=== PATIENT | male | born 1945 | race Caucasian/White ===

== ENCOUNTER 2016-11-03 14:02 | Inpatient (IN) ==
--- NOTE | 2016-11-03 17:13 | Vascular/Endovascular H&P ---
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 He has progressive pain and ulceration in the left foot. He will be started on a heparin drip. He will require revascularization during this admission. The risks, benefits and alternatives were discussed and all questions were answered. (2) Essential hypertension Current Visit: Yes Status: Chronic He was counseled regarding atherosclerotic risk factor reduction. (3) Atrial fibrillation Current Visit: Yes Status: Chronic Eliquis will be held in preparation for surgery. Patient will be started on a heparin drip. Qualifiers: Atrial fibrillation type: chronic Qualified Code(s): I48.2 - Chronic atrial fibrillation History of Present Illness Chief complaint: Peripheral vascular diease with ulceration HPI: Mr. Jimenez is a 70 year old male with a history of hypertension, atrial fibrillation and peripheral vascular disease with ulceration. He was found to have diminished pulse exam and vascular labs were consistent with severe disease. The patient underwent a CT angiogram and was found to have a left iliac, femoral and popliteal artery occlusion. He reports progressively worsening symptoms of rest pain. At the time of evaluation he is alert. He denies any chest pain or shortness of breath. He reports chronic left foot pain. Past Med Surg Social Fam HX - Past Medical History Medical history: atrial fibrillation, CVA, hypertension, other Psychiatric history: depression - Past Surgical History Surgical History: other (lung surgery 2009) - Social History Smoking Status: Former smoker Smokeless Tobacco Status: No Alcohol use: none, rarely Drug use: none Medications and Allergies Aspirin [Adult Low Dose Aspirin EC] 81 mg PO DAILY 03/31/15 [History] Losartan/HCTZ [Hyzaar 50-12.5 Tablet] 1 tab PO DAILY 03/31/15 [History] Metoprolol [Lopressor] 100 mg PO BID 03/31/15 [History] Tamsulosin [Flomax] 0.4 mg PO BID 03/31/15 [History] Amino Acids/Protein Hydrolys [Pre Protein 20 Liquid] 30 ml PO DAILY 11/03/16 [ History] Apixaban [Eliquis] 5 mg PO BID 11/03/16 [History] Azathioprine [Imuran] 1 tab PO DAILY 11/03/16 [History] Calcium Carbonate/Vitamin D3 [Calcium 500 + Vit D Caplet] 1 each PO TIDWM [History] Venlafaxine XR (24 HR) [Effexor Xr] 75 mg PO DAILY 11/03/16 [History] Omeprazole [PriLOSEC] 20 mg PO DAILY 11/04/16 [History] predniSONE [PredniSONE] 20 mg PO DAILY 11/04/16 [History] 3 Allergy/AdvReac Type Severity Reaction Status Date / Time No Known Allergies Allergy Verified 10/07/14 18:39 All Systems Review: A 10-system review of systems was performed and is negative for pertinent findings except as documented above in the HPI. - Constitutional Constitutional: no chills, no fever(s) - Cardiovascular Cardiovascular: no chest pain at rest, no chest pain with exertion, no dyspnea at rest, no dyspnea on exertion - Vascular Vascular: lower extremity ulcers Exam Vital Signs, Last 4 Hours Temp Pulse Resp BP Pulse Ox 11/03/16 14:37 97.3 F L 81 16 116/79 94 General: Present: Conversant, No Apparent Distress HEENT: Present: Atraumatic, Normocephaly, Trachea midline, Pupils equal Neck: Absent: Left Carotid bruit, Right Carotid bruit Cardiac: Present: No Murmur, Irregular Rhythm Lungs: Present: Normal Breath Sounds, No Wheeze, Rales, Rhonchi Neuro: Present: Alert and responsive, Other (left upper and lower extremity weakness) Abdomen: Present: Soft, Non-tender. Absent: Masses Vascular: Present: Normal capillary refill, Pulse, absent (left femoral, popliteal and tibial pulses), Cyanosis (left forefoot). Absent: Edema Skin: Present: Wound/ulcer(s) (superficial ulcers on toese) Results 11/04/16 01:24 11/04/16 01:24
[2016-11-03] MEDS ORDERED: Naloxone 0.4 MG/ML INJ IVP PRN (17:14)
[2016-11-03] MEDS ORDERED: *HR* Labetalol 20 MG/4 ML SYRINGE IVP PRN (17:14)
[2016-11-03] MEDS ORDERED: Acetaminophen 325 MG TABLET PO PRN (17:14)
[2016-11-03] MEDS ORDERED: *HR* OxyCODONE Immed Rel 5 MG TABLET PO PRN (17:14)
[2016-11-03] MEDS ORDERED: *HR* HYDROcodone/Acet 5/325 mg TABLET PO PRN (17:14)
[2016-11-03] MEDS ORDERED: *HR* Heparin 5,000 UNIT/ML VIAL IVP ONE (18:13)
[2016-11-03] MEDS ORDERED: *HR* Heparin 5,000 UNIT/ML VIAL IVP PRN ×2 (18:13)
[2016-11-03 18:24] LABS: Hematocrit 40.7 % (37.5-50.1); Hemoglobin 14.1 g/dL (12.9-16.9); Mean Corpuscular HGB Conc 34.6 g/dL (31.6-35.5); Mean Corpuscular Hemoglobin 30.3 pg (28.0-33.3); Mean Corpuscular Volume 87.5 fL (83.0-100.0); Mean Platelet Volume 9.2 fL (9.4-12.4); Nucleated Red Blood Cells 0.2 /100 WBC (0); Platelet Count 333 K/mcL (140-400); Red Blood Count 4.65 M/mcL (4.19-5.50); Red Cell Distribution Width 19.7 % (11.5-14.5)
[2016-11-03 18:28] LABS: INR 1.4; Prothrombin Time 14.9 Seconds (9.4-12.1)
[2016-11-03 18:30] LABS: Activated Partial Thrombo Time 32.4 Seconds (26.0-36.0)
[2016-11-03 18:32] LABS: BUN/Creatinine Ratio 22 (6-26); Blood Urea Nitrogen 28 mg/dL (8-26); Calcium 9.7 mg/dL (8.6-10.8); Carbon Dioxide 26 mEq/L (19-29); Chloride 99 mEq/L (98-109); Glucose 134 mg/dL (70-99); Osmolality,Calculated 285 (280-300); Potassium 4.3 mEq/L (3.5-4.5); Sodium 134 mEq/L (136-145); eGFR For African Americans > 60 (> 60); eGFR For Non-African Americans 55 (> 60)
[2016-11-03] MEDS: 0.9 % Sodium Chloride 1,000 ML IVC SCH (19:20)
[2016-11-03] MEDS: Heparin 25,000 UNIT/500 ML D5W 25,000 UNIT/500 ML MLS IVC SCH (19:21)
[2016-11-03 19:27] LABS: Eosinophils # 1.2 K/mcL (0.0-0.6); Lymphocytes # 3.8 K/mcL (0.6-4.6); Monocytes # 0.5 K/mcL (0.0-1.3); Neutrophils # 6.5 K/mcL (1.6-8.9); Platelet Estimate Normal (Normal)
[2016-11-03] MEDS: Metoprolol 100 MG TABLET PO SCH (20:44)
[2016-11-04 01:41] LABS: Basophils # 0.1 K/mcL (0.0-0.2); Basophils % 0.4 %; Eosinophils # 0.9 K/mcL (0.0-0.6); Eosinophils % 7.5 %; Hematocrit 37.8 % (37.5-50.1); Hemoglobin 13.4 g/dL (12.9-16.9); Immature Granulocytes % 9.3 % (0-4); Lymphocytes # 1.6 K/mcL (0.6-4.6); Lymphocytes % 13.5 %; Mean Corpuscular HGB Conc 35.4 g/dL (31.6-35.5); Mean Corpuscular Hemoglobin 30.9 pg (28.0-33.3); Mean Corpuscular Volume 87.3 fL (83.0-100.0); Monocytes # 0.6 K/mcL (0.0-1.3); Monocytes % 4.9 %; Nucleated Red Blood Cells 0.2 /100 WBC (0); Platelet Count 291 K/mcL (140-400); Red Blood Count 4.33 M/mcL (4.19-5.50); Red Cell Distribution Width 19.1 % (11.5-14.5); Segmented Neutrophils % 64.4 %
[2016-11-04 01:44] LABS: Neutrophils # 7.5 K/mcL (1.6-8.9)
[2016-11-04 01:54] LABS: BUN/Creatinine Ratio 26 (6-26); Blood Urea Nitrogen 25 mg/dL (8-26); Calcium 9.3 mg/dL (8.6-10.8); Carbon Dioxide 25 mEq/L (19-29); Chloride 100 mEq/L (98-109); Glucose 92 mg/dL (70-99); Magnesium 1.7 mg/dL (1.6-2.6); Osmolality,Calculated 280 (280-300); Potassium 4.1 mEq/L (3.5-4.5); Sodium 133 mEq/L (136-145); eGFR For African Americans > 60 (> 60); eGFR For Non-African Americans > 60 (> 60)
[2016-11-04 02:04] LABS: Activated Partial Thrombo Time 185.4 Seconds (26.0-36.0)
[2016-11-04 02:20] LABS: Heparin anti-factor XA UFH 1.78 IU/mL (0.30-0.70)
[2016-11-04] MEDS: VITAMIN D3 PO SCH ×3 (07:56→17:52)
[2016-11-04] MEDS: CALCIUM CARBONATE PO SCH ×3 (07:56→17:52)
[2016-11-04] MEDS: Metoprolol 100 MG TABLET PO SCH ×2 (08:43→20:11)
[2016-11-04] MEDS: Losartan/HCTZ 50-12.5 TABLET PO SCH (08:43)
[2016-11-04] MEDS: Aspirin Enteric Coated 81 MG Tablet PO SCH (08:43)
[2016-11-04] MEDS: Venlafaxine XR (24 HR) 37.5 MG CAP.ER.24H PO SCH (08:43)
[2016-11-04] MEDS: 0.9 % Sodium Chloride 1,000 ML IVC SCH (15:02)
[2016-11-04] MEDS: Heparin 25,000 UNIT/500 ML D5W 25,000 UNIT/500 ML MLS IVC SCH (20:07)
--- NOTE | 2016-11-04 21:18 | Anesthesia Evaluation PreOp ---
Date of Encounter: 11/04/16 Time of Encounter: 21:15 - Past History Planned Operation: L-Iliac Stent/Possible possible Fem-Fem vs. Fem-Pop Cardiac History: HTN (maintained on Losartan/Hctz, Metoprolol), Arrhythmia (Hx of Paroxysmal AFib maintained on Eliquis.), Other (PVDz w/ L-iliac, femoral & Popliteal artery occlusion & L foot ulceration this hospitalization) Pulmonary History: Former smoker (quit 2011) RN DIALYSIS History: CVA (Strokes x 2 [2006, 2011] dysarthria, L-sided weakness UE>LE. Pt uses Wheelchair for ambulation), Other (Anxiety/Depression/Hx of hospitalization of Major Depression Disorder maintained on Effexor) Other Medical History: GERD (maintained on Prilosec), Other (RA ?? maintained on Imuran, Prednisone [20mg po Daily]. BPH maintained on Flomax) Anesthesia History: No Prior Anesthetic Complications, Past Anesthesia (Lung procedure 2009, T&A approx 195) Alcohol Use: none, rarely Drug use: none Medications and Allergies Aspirin [Adult Low Dose Aspirin EC] 81 mg PO DAILY 03/31/15 [History] Losartan/HCTZ [Hyzaar 50-12.5 Tablet] 1 tab PO DAILY 03/31/15 [History] Metoprolol [Lopressor] 100 mg PO BID 03/31/15 [History] Tamsulosin [Flomax] 0.4 mg PO BID 03/31/15 [History] Amino Acids/Protein Hydrolys [Pre Protein 20 Liquid] 30 ml PO DAILY 11/03/16 [ History] Apixaban [Eliquis] 5 mg PO BID 11/03/16 [History] Azathioprine [Imuran] 1 tab PO DAILY 11/03/16 [History] Calcium Carbonate/Vitamin D3 [Calcium 500 + Vit D Caplet] 1 each PO TIDWM [History] Venlafaxine XR (24 HR) [Effexor Xr] 75 mg PO DAILY 11/03/16 [History] Omeprazole [PriLOSEC] 20 mg PO DAILY 11/04/16 [History] predniSONE [PredniSONE] 20 mg PO DAILY 11/04/16 [History] 3 Allergy/AdvReac Type Severity Reaction Status Date / Time No Known Allergies Allergy Verified 10/07/14 18:39 - Meds/Allergy Pre-op Review Medications Reviewed: Yes Allergies Reviewed: Yes Beta Blockers on Current Med List: No Anesthesia Results - Labs 11/04/16 01:24 11/04/16 01:24 Laboratory Tests 11/03/16 11/04/16 11/04/16 18:00 01:24 01:24 PT 14.9 H INR 1.4 APTT Heparin Anti-Xa, Unfract 1.78 H* Est GFR (Non-Af Amer) > 60 11/04/16 15:37 PT INR APTT 69.6 H Heparin Anti-Xa, Unfract Est GFR (Non-Af Amer) Laboratory Results - Imaging EKG: pending, image reviewed (158bpm [place], 03/2015. Current EKG ordered/pending) Anesthesia Exam Vital Signs Temp Pulse Resp BP Pulse Ox 11/04/16 19:31 97.5 F L 83 19 102/66 90 11/04/16 16:00 97.6 F 73 16 108/61 97 11/04/16 11:52 97.4 F L 64 16 97/70 98 11/04/16 07:33 98.0 F 81 16 128/81 94 11/04/16 04:41 97.5 F L 73 16 120/79 94 11/04/16 04:40 74 11/03/16 23:40 69 11/03/16 23:39 98.0 F 73 15 119/74 95 Intake and Output 11/04/16 11/04/16 11/04/16 07:59 15:59 23:59 Intake Total 244 / 244 1120 / 1120 256 / 256 Balance 244 / 244 1120 / 1120 256 / 256 Intake: IV Fluids 244 / 244 1000 / 1000 256 / 256 0.9 % Sodium Chloride 1,000 ML 1000 / 1000 @ 50 mls/hr IVC .Q20H [facility] Rx#: [id number] Heparin 25,000 UNIT/500 ML D5W 244 / 244 256 / 256 25,000 unit In 500 ml @ 14 UNIT /KG/HR 21.56 mls/hr IVC . [id number] [facility] Rx#:[id number] Oral 120 / 120 Other: Meal Lunch Percent of Meal Consumed 100% # Urine Diapers 1 Weight 77.4 kg Patient Weight 11/04/16 23:59 Weight 77.4 kg Height: 5'10" Weight: 170# BMI = 24.5 NPO (# of Hours): MNoc - HEENT Pupil (Motor): Pupils equal, EOMI Mallampati: II Teeth: Edentulous Oral Opening: Greater than 3 - RN DIALYSIS LOC: Oriented RN DIALYSIS Motor: Normal RUE, Normal RLE, Normal Face, Deficit LUE, Deficit LLE RN DIALYSIS Sensory: Normal: RUE, RLE, Face, Deficit: LUE, LLE - Cardiac Rhythm: Regular Murmur: None - Pulmonary Breath Sounds: bilateral Clear Respiratory Effort: Symmetrical Anesthesia Assess/Plan ASA Score: 3 (HTN, AFib, RA, Anxiety/Depression) Modified Tigrett Scale for Level of Consciousness: Cooperative, oriented, and tranquil Anesthetic Plan: General Monitoring Plan: Standard Monitors, A-Line Recovery Plan: PACU Anes Supervising Prov Stmt: Pt seen/evaluated, R&B Discussed, questions answered and consent obtained. Kanika Frye MD
--- NOTE | 2016-11-05 06:35 | Vascular/Endovas Progress Note ---
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 He has pain and ulceration. He has been scheduled for stent placement and/or possible bypass. The risks, benefits and alternatives were discussed and all questions were answered. He expressed understanding and wishes to proceed. He will continue with his heparin drip. (2) Essential hypertension Current Visit: Yes Status: Chronic He was again counseled regarding atherosclerotic risk factor reduction. (3) Atrial fibrillation Current Visit: Yes Status: Chronic Eliquis will be held in preparation for surgery. Patient will be started on a heparin drip. Qualifiers: Atrial fibrillation type: chronic Qualified Code(s): I48.2 - Chronic atrial fibrillation - Subjective Interval history: The patient is comfortable at this time, except for mild left foot pain. He denies any acute changes overnight. He denies any chest pain or shortness of breath. Vital Signs, Last 4 Hours Temp Pulse Resp BP Pulse Ox 11/05/16 04:00 80 11/05/16 03:53 98.5 F 76 19 120/75 93 - Physical Examination General: Present: Conversant, No Apparent Distress HEENT: Present: Pupils equal Cardiac: Present: Irregular Rhythm Lungs: Present: Normal Breath Sounds, No Wheeze, Rales, Rhonchi Neuro: Present: Alert and responsive Vascular: Present: Normal capillary refill, Pulse, absent (left lower extremity) . Absent: Cyanosis, Edema Abdomen: Present: Soft, Non-tender, Masses Skin: Present: Wound/ulcer(s) (superficial foot ulcers, no erythema, minimal serous drainage) - VTE Reasons for not Prescribing Prophylaxis: Not indicated-Anticoagulated or INR therapeutic Documentation of Mechanical Device: Intermittent pneumatic compression device Results 11/04/16 01:24 11/04/16 01:24 Lab Results, Last 24 hours 11/04/16 11/04/16 11/05/16 09:18 15:37 04:24 APTT 81.7 H D 69.6 H 75.4 H Consult Discharge Plan - Plan Referrals: Jonah Almanza MD [Partnered Physician] - 11/06/17 1:00 pm Nina Smith, AMAYA [Primary Care Provider] - (THIS PATIENT IS FROM [facility], NO PCP APPOINTMENT NEEDED)
[2016-11-05] MEDS: VITAMIN D3 PO SCH ×2 (08:22→12:27)
[2016-11-05] MEDS: CALCIUM CARBONATE PO SCH ×2 (08:22→12:27)
[2016-11-05] MEDS: Metoprolol 100 MG TABLET PO SCH ×2 (08:29→20:32)
[2016-11-05] MEDS: Aspirin Enteric Coated 81 MG Tablet PO SCH (09:48)
[2016-11-05] MEDS: Venlafaxine XR (24 HR) 37.5 MG CAP.ER.24H PO SCH (09:48)
[2016-11-05] MEDS: Losartan/HCTZ 50-12.5 TABLET PO SCH (09:49)
[2016-11-05] MEDS ORDERED: Heparin 1,000 UNITS/500 mL NS 500 ML ONE (11:18)
[2016-11-05] MEDS ORDERED: Lidocaine -MPF 2% 2 ML VIAL ONE (11:20)
[2016-11-05] MEDS ORDERED: *HR* FentaNYL (PF) 100 MCG/2 ML VIAL ONE ×2 (11:29→13:32)
[2016-11-05] MEDS ORDERED: *HR* Propofol 200 MG/20 ML VIAL IVP ONE (11:30)
[2016-11-05] MEDS ORDERED: Dexamethasone 4 MG/ML VIAL ONE (11:34)
[2016-11-05] MEDS ORDERED: Ondansetron 4 MG/2 ML VIAL ONE (11:34)
[2016-11-05] MEDS ORDERED: Vancomycin 1,000 MG VIAL ONE (12:17)
[2016-11-05] MEDS ORDERED: ceFAZolin 2,000 MG in D5% in Water (Mini-Bag+) 100 ML IVPB ONE (12:40)
[2016-11-05] MEDS ORDERED: Vancomycin 1,000 MG in D5% in Water 250 ML IVPB ONE (13:10)
[2016-11-05] MEDS ORDERED: *HR* HYDROmorphone (PF) 1 MG/ML SYRINGE IVP PRN (14:44)
[2016-11-05] MEDS ORDERED: Ondansetron 4 MG/2 ML VIAL IVP ONE (14:44)
--- NOTE | 2016-11-05 15:16 | Anesthesia Evaluation Post Op ---
Date of Encounter: 11/05/16 Time of Encounter: 15:15 - Vital Signs Vital Signs: Vital Signs/O2 Sat, Most Current Temp Pulse Resp BP Pulse Ox 97.7 F 74 13 116/64 99 11/05/16 14:37 11/05/16 14:57 11/05/16 14:57 11/05/16 14:57 11/05/16 14:57 - Lungs Lungs: Clear Ascult./Percussion - Airway Airway: Non-obstructed - Cardiovascular Regular Rate - Mental Status Mental Status: Asleep with brisk response to light stimulation - Pain Pain Scale: 0 Pain Scale used: Numeric (1 - 10) - Nausea Vomiting Nausea Vomiting: Not Present - Hydration Hydration: NPO, Blas catheter - Discharge PostOp Status: Transfer Patient to floor
--- NOTE | 2016-11-05 15:28 | Operative Note ---
Date of procedure: 11/05/16 Pre-op diagnosis: Peripheral Vascular Disease with ulceration Post-op diagnosis: same Procedure: 1. Iliofemoral endarterectomy with bovine pericardial patch angioplasty. 2. Left deep femoral endarterectomy. 3. Left iliac artery thrombectomy with 4 belizean and 5 belizean salvador embolectomy catheters. Complications: None Anesthesia: SIDDHARTH Surgeon: Jonah Almanza Estimated blood loss (cc): 50 Specimen: Left lower extremity thrombus and plaque Condition: stable Disposition: PACU Procedure in Detail: Indications: The patient is a 70 year old male with multiple medical comorbidities including hypertension, cerebrovascular accidents and atrial fibrillation. The patient also has a history of peripheral vascular disease with rest pain and ulcerations. Revascularization was recommended for symptomatic relief and to reduce his risk of limb loss. Procedure: The patient was identified in the preoperative area. The risks, benefits, and alternatives of procedure were discussed and all questions were answered. He was taken to the operating room and placed in supine position on the operating room table. After the induction of general endotracheal anesthesia, he was cleaned and draped in normal sterile fashion. An oblique incision was made along the left groin sharply. Hemostasis was obtained with electrocautery. Through a process of blunt and sharp electrocautery dissection , the skin and subcutaneous tissues were incised and the mid to distal external iliac artery was dissected underneath the inguinal ligament and a vessel loop was passed around it. The common femoral artery, deep femoral artery and superficial femoral artery were dissected circumferentially and surrounded with vessel loops. The vessels were noted to be firm and heaviliy calcified. The left common femoral artery was pulseless. The patient received 5000 units of heparin intravenously. The vessels were occluded. A longitudinal arteriotomy was made sharply into the common femoral artery. It was extended under the inguinal ligament into the external iliac artery proximally. It was then extended into the superficial femoral artery distally. Significant thrombus and plaque were noted to be present in the left common femoral and left external iliac artery. a 5 belizean salvador catheter was passed proximally and significant thrombus was removed. After the first pass, no significant antegrade flow occurred. However , after several additional passes, vigorous upulsatile flow was noted. A 4 belizean catheter was also passed and no additional thrombus was noted. The left superficial femroal artery was noted to be chronically occluded at it's origin. The left deep femoral artery had minimal retrograde flow upon release of the vessel loop and was noted to have significant nealry occlusive plaque. Using a dental freer, an endarterectomy was performed from the external iliac artery through the common femoral artery. The plaque was irregular and heavily calficied. The plaque was excised sharply and no elevated flaps were noted at the endpoint. The dental freer was then used to perform a deep femoral endarterectomy. The plaque was circumferentially excised from the deep femoral artery using an eversion technique. Release of the loop revealed significant retrograde flow. The loop was tightened. The lumen was irrigated with heparinzed saline. A bovine pericardial patch was cut to fit the defects in the external iliac, common femoral and superficial femoral arteries. The patch was sutured in place with running 6-0 Prolene. Prior to completing the patch anastomosis, each vessel was flushed individually, then reoccluded. Heparinized saline was infused into the lumen. The patch was completed and flow was restored. Thrombin and Gelfoam were used to aid in hemostasis. A biphasic signal was noted at the posterior tibial artery. The wound was irrigated with antibiotic- containing saline. Platelet-rich and platelet-poor plasma were infused into the wound. The wounds were reapproximated with layer of 2-0 Vicryl followed by two layers of 3-0 and Vicryl 3-0 Monocryl in the subcuticular layer. A sterile dressing was applied. The patient was extubated and taken to recovery room in stable condition.
[2016-11-05] MEDS ORDERED: *HR* Labetalol 20 MG/4 ML SYRINGE IVP PRN (15:49)
[2016-11-05] MEDS ORDERED: 0.9 % Sodium Chloride 1,000 ML IVC SCH (15:49)
[2016-11-05] MEDS ORDERED: *HR* Morphine 2 MG/ML SYRINGE IVP PRN (15:49)
[2016-11-05] MEDS ORDERED: Acetaminophen 325 MG TABLET PO PRN (15:49)
[2016-11-05] MEDS ORDERED: Naloxone 0.4 MG/ML INJ IVP PRN (15:49)
[2016-11-05] MEDS ORDERED: Ondansetron 4 MG/2 ML VIAL IVP PRN (15:49)
[2016-11-05] MEDS ORDERED: *HR* HYDROcodone/Acet 5/325 mg TABLET PO PRN (15:49)
[2016-11-05] MEDS: *HR* OxyCODONE Immed Rel 5 MG TABLET PO PRN (17:39)
[2016-11-05] MEDS: ceFAZolin 2,000 MG in D5% in Water 100 ML IVPB SCH (18:21)
--- NOTE | 2016-11-05 18:58 | Electrocardiograph Report ---
[address] [place] [address] Test Date: 2016-11-04 Pat Name: Jonah Jimenez Department: 110 Room: 2N07 Gender: M [employer] Psych[employer]: : 1945 Requested By: Cande Banks Order Number: [id number] Reading MD: Jose Wayne MD Measurements Intervals Ellery Rate: 67 P: 66 [place]: 191 QRS: 199 QRSD: 95 T: 107 QT: 383 QTc: 399 Interpretive Statements SINUS RHYTHM WITH OCCASIONAL SUPRAVENTRICULAR PREMATURE COMPLEXES LATERAL MYOCARDIAL INFARCTION, OF INDETERMINATE AGE Electronically Signed On 11-05-2016 18:57:47 EDT by Jose Wayne MD
[2016-11-06] MEDS: ceFAZolin 2,000 MG in D5% in Water 100 ML IVPB SCH (03:05)
[2016-11-06] MEDS: *HR* OxyCODONE Immed Rel 5 MG TABLET PO PRN (03:58)
[2016-11-06 05:08] LABS: Basophils % 0.4 %; Eosinophils # 0.4 K/mcL (0.0-0.6); Eosinophils % 4.8 %; Hematocrit 33.2 % (37.5-50.1); Immature Granulocytes % 11.4 % (0-4); Lymphocytes # 1.2 K/mcL (0.6-4.6); Lymphocytes % 14.7 %; Mean Corpuscular Hemoglobin 29.8 pg (28.0-33.3); Mean Corpuscular Volume 87.6 fL (83.0-100.0); Monocytes # 0.4 K/mcL (0.0-1.3); Monocytes % 4.7 %; Neutrophils # 5.2 K/mcL (1.6-8.9); Nucleated Red Blood Cells 0.2 /100 WBC (0); Platelet Count 287 K/mcL (140-400); Red Blood Count 3.79 M/mcL (4.19-5.50); Red Cell Distribution Width 18.7 % (11.5-14.5)
[2016-11-06 05:24] LABS: BUN/Creatinine Ratio 14 (6-26); Calcium 8.6 mg/dL (8.6-10.8); Carbon Dioxide 23 mEq/L (19-29); Chloride 105 mEq/L (98-109); Glucose 114 mg/dL (70-99); Osmolality,Calculated 285 (280-300); Potassium 4.1 mEq/L (3.5-4.5); Sodium 137 mEq/L (136-145); eGFR For African Americans > 60 (> 60); eGFR For Non-African Americans > 60 (> 60)
[2016-11-06 05:25] LABS: Blood Urea Nitrogen 13 mg/dL (8-26); Hemoglobin 11.3 g/dL (12.9-16.9)
[2016-11-06 06:07] LABS: Anisocytosis 1+ (Not Present); Platelet Estimate Normal (Normal)
--- NOTE | 2016-11-06 07:07 | Discharge Summary ---
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 His wounds are healing and his left pedal signals are biphasic. His left foot is warm. He will be discharged today. (2) Essential hypertension Priority: Secondary Status: Chronic Comments: He was counseled regarding atherosclerotic risk factor reduction. (3) Atrial fibrillation Priority: Secondary Status: Chronic Comments: He will resume anticoagulation. Qualifiers: Atrial fibrillation type: chronic Qualified Code(s): I48.2 - Chronic atrial fibrillation (4) Postoperative anemia due to acute blood loss Priority: Secondary Status: Acute Comments: The patient has acute expected postoperative blood loss anemia. He is hemodynamically stable without evidence of ongoing blood loss. (5) Cerebrovascular disease Priority: Secondary Status: Chronic Comments: The patient a remote history of a right hemispheirc stroke with a chronic left sided motor deficit. - Discharge Medications Prescriptions: HYDROcodone/Acet 5/325 mg [[place] 5-325 mg] 1 tab PO Q4H PRN #25 tablet PRN Reason: POSTOPERATIVE PAIN Home Medications: Aspirin [Adult Low Dose Aspirin EC] 81 mg PO DAILY 03/31/15 [History] Losartan/HCTZ [Hyzaar 50-12.5 Tablet] 1 tab PO DAILY 03/31/15 [History] Metoprolol [Lopressor] 100 mg PO BID 03/31/15 [History] Tamsulosin [Flomax] 0.4 mg PO BID 03/31/15 [History] Amino Acids/Protein Hydrolys [Pre Protein 20 Liquid] 30 ml PO DAILY 11/03/16 [ History] Apixaban [Eliquis] 5 mg PO BID 11/03/16 [History] Azathioprine [Imuran] 1 tab PO DAILY 11/03/16 [History] Calcium Carbonate/Vitamin D3 [Calcium 500 + Vit D Caplet] 1 each PO TIDWM [History] Venlafaxine XR (24 HR) [Effexor Xr] 75 mg PO DAILY 11/03/16 [History] Omeprazole [PriLOSEC] 20 mg PO DAILY 11/04/16 [History] predniSONE [PredniSONE] 20 mg PO DAILY 11/04/16 [History] HYDROcodone/Acet 5/325 mg [[place] 5-325 mg] 1 tab PO Q4H PRN #25 tablet 11/06/16 [Rx] Allergies/Adverse Reactions: 3 Allergy/AdvReac Type Severity Reaction Status Date / Time No Known Allergies Allergy Verified 10/07/14 18:39 Procedures/tests Complete & Pending: Procedures Performed prior 72 hours Category Date Time Status EKG [ECG 12 lead ECG] [ECG] Routine Y 11/04/16 21:49 Completed Date of admission: 11/03/16 14:05 Primary care physician: Nina Smith CNP Procedure(s) Performed: Left iliac thrombectomy and left femoral endarterectomy. Discharging clinician: Jonah Almanza Anticipated date of discharge: 11/06/16 - Patient Status Disposition: Transfer SNF Condition: Good Functional capacity at discharge: wheelchair bound Overall status at discharge: patient is back to baseline - Discharge Instructions Instructions: Hydrocodone/Acetaminophen (By mouth), Remote Superficial Femoral Artery Endarterectomy (DC) Follow Up With: Jonah Almanza MD [Partnered Physician] - 12/15/16 1:00 pm Nina Smith CNP [Primary Care Provider] - (THIS PATIENT IS FROM [facility], NO PCP APPOINTMENT NEEDED) Additional Instructions: May remove bandage and shower 11/07/16. Wash wound gently and pat to dry. Apply dry gauze to wounds daily for 7 days. No tub baths or swimming until 11/28/16. Call Dr. Almanza at [phone] with questions or concerns. - Diet and Activity Activity: increase activity as tolerated Diet: advance to your usual diet - Hospital Course Hospital course: Mr. Jimenez is a 70 year old male with a history of peripheral vascular disease with ulceration. He was admitted and started on a heparin drip on 11/03/16. He underwent a left iliac thrombectomy and left femoral endarterectomy on 11/05/16. He tolerated the procedure well. His wounds were healing on postoperative day #1 and his foot was warm. He was discharged in stable condition without complications. - Time Spent with Patient Total time spent providing and/or coordinating discharge services: Exam Vital Signs, Last 4 Hours Temp Pulse Resp BP Pulse Ox 11/06/16 04:42 97.9 F 75 16 135/69 94 11/06/16 04:40 87 11/06/16 04:00 97.9 F 87 94 General: Present: Conversant, No Apparent Distress HEENT: Present: Atraumatic Cardiac: Present: Irregular Rhythm Lungs: Present: Normal Breath Sounds Neuro: Present: Alert and responsive, Other (left upper and lower extremity weakness due to prior CVA) Abdomen: Present: Soft Vascular: Present: Normal capillary refill, Surgical incisions (incisions clean and dry withotu erythema, hematoma or drainage). Absent: Cyanosis Skin: Present: Wound/ulcer(s) (superficial toe ulcerations) - VTE Reasons for not Prescribing Prophylaxis: Not indicated-Anticoagulated or INR therapeutic Documentation of Mechanical Device: Intermittent pneumatic compression device
[2016-11-06] MEDS: Metoprolol 100 MG TABLET PO SCH (07:43)
[2016-11-06] MEDS ORDERED: Cholecalciferol (D-3) 1,000 UNIT TABLET PO SCH (09:00)
[2016-11-06] MEDS ORDERED: Venlafaxine XR (24 HR) 37.5 MG CAP.ER.24H PO SCH (09:00)
[2016-11-06] MEDS ORDERED: Losartan/HCTZ 50-12.5 TABLET PO SCH (09:00)
[2016-11-06] MEDS ORDERED: Aspirin Enteric Coated 81 MG Tablet PO SCH (09:00)
[2016-11-06 11:29] VITALS: BP 116/65
--- NOTE | 2016-11-06 16:31 | Physician Discharge Referral ---
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 of other part of lower left leg Priority: Primary Status: Chronic (2) Essential hypertension Priority: Secondary Status: Chronic (3) Atrial fibrillation Priority: Secondary Status: Chronic Prognosis: Good Aware of Diagnosis: Patient, Family Aware of Prognosis: Patient, Family - Transfer Medications Prescriptions: HYDROcodone/Acet 5/325 mg [[place] 5-325 mg] 1 tab PO Q4H PRN #25 tablet PRN Reason: POSTOPERATIVE PAIN Home Medications: Aspirin [Adult Low Dose Aspirin EC] 81 mg PO DAILY 03/31/15 [History] Losartan/HCTZ [Hyzaar 50-12.5 Tablet] 1 tab PO DAILY 03/31/15 [History] Metoprolol [Lopressor] 100 mg PO BID 03/31/15 [History] Tamsulosin [Flomax] 0.4 mg PO BID 03/31/15 [History] Amino Acids/Protein Hydrolys [Pre Protein 20 Liquid] 30 ml PO DAILY 11/03/16 [ History] Apixaban [Eliquis] 5 mg PO BID 11/03/16 [History] Azathioprine [Imuran] 1 tab PO DAILY 11/03/16 [History] Calcium Carbonate/Vitamin D3 [Calcium 500 + Vit D Caplet] 1 each PO TIDWM [History] Venlafaxine XR (24 HR) [Effexor Xr] 75 mg PO DAILY 11/03/16 [History] Omeprazole [PriLOSEC] 20 mg PO DAILY 11/04/16 [History] predniSONE [PredniSONE] 20 mg PO DAILY 11/04/16 [History] HYDROcodone/Acet 5/325 mg [[place] 5-325 mg] 1 tab PO Q4H PRN #25 tablet 11/06/16 [Rx] Allergies/Adverse Reactions: 3 Allergy/AdvReac Type Severity Reaction Status Date / Time No Known Allergies Allergy Verified 10/07/14 18:39 - Respiratory Orders Smoking Cessation: Smoking cessation has been advised. For more information, call the [place] Tobacco Quit Line at 0-848-GUPB-NOW. - Ancillary Orders May use pressure relief devices daily prn, May go on DEREJE w/family/respon alliance party w /meds at nurse discretion PRN, May have alcoholic beverages, May consult with Dentist, Transport Tech, Honey Processor PRN - Advance Directives Living Will: No Power of Machine Deburrer: No Code Status: Full Code - Mobility Orders Chair, Other (as tolerated) - Rehabiliation Orders Rehab Potential: Good Rehab Orders: ROM Exercises, Evaluation for Physical Therapy, Evaluation for Occupational Therapy - Treatments Skin tear care topically daily PRN per policy, May check for fecal impaction rectally daily PRN, Fleet enema rectally every other day PRN cleansing purposes - Diet Orders Regular CERTIFICATION: I certify that the transfer of the above named patient to an Extended Care Facility is necessary for the continuing treatment of the diagnosis listed. The above information is true and accurate reflection of patient's current condition. Confidential - Redisclosure prohibited without a patient's written consent.
== END 2016-11-06 18:45 | DRG 271 ==
LOC: SAMDAY 14:02 → 2NNU 14:05
PROVIDERS: ADMIT Surgery; ATTEND Surgery

== ENCOUNTER 2017-03-21 20:17 | Inpatient (IN) ==
--- NOTE | 2017-03-21 20:25 | Emergency Department Note ---
Disposition Clinical Impression: Pyelonephritis UTI (urinary tract infection) Qualifiers: Urinary tract infection type: site unspecified Hematuria presence: without hematuria Qualified Code(s): N39.0 - Urinary tract infection, site not specified Leukocytosis Qualifiers: Leukocytosis type: unspecified Qualified Code(s): D72.829 - Elevated white blood cell count, unspecified Disposition: Admitted As Inpatient Condition: Good Time of Disposition: 21:38 Abdominal Pain HPI - General Chief Complaint: ED Abdominal Pain Stated Complaint: abd/flank pain Time Seen by Provider: 03/21/17 20:23 Source: patient, EMS Mode of arrival: EMS Limitations: no limitations Nursing Notes Reviewed: Yes Vital Signs Reviewed: Yes - History of Present Illness HPI Narrative: Patient is a 71-year-old male with past medical history of kidney stones, mild dementia, A. fib, CVA. He presents today due to concern for "penile pain." He is from [facility]. Patient states that over the past 2-3 days , he has had pain in his penis that felt similar to previous pain that he had with kidney stones. He also notes a foul odor and cloudiness in his urine. Denies any hematuria, nausea, vomiting, abdominal pain, chest pain, shortness of breath. He says he has occasional left flank pain. Denies any fevers. With previous kidney stone, he denies ever having stents or needing removal of stone or hospital stay. - Related Data Home Medications Medication Instructions Recorded Confirmed Aspirin [Adult Low Dose Aspirin EC] 81 mg PO DAILY 03/31/15 03/21/17 Metoprolol [Lopressor] 100 mg PO BID 03/31/15 03/21/17 Tamsulosin [Flomax] 0.4 mg PO BID 03/31/15 03/21/17 Apixaban [Eliquis] 5 mg PO BID 11/03/16 03/21/17 Azathioprine [Imuran] 1 tab PO DAILY 11/03/16 03/21/17 Omeprazole [PriLOSEC] 20 mg PO DAILY 11/04/16 03/21/17 predniSONE [PredniSONE] 10 mg PO DAILY 11/04/16 03/21/17 PARoxetine HCl [Paroxetine HCl] 20 mg PO DAILY 03/16/17 03/21/17 Potassium Chloride [Klor-Con 10] 10 meq PO DAILY 03/16/17 03/21/17 Sennosides/Docusate Sodium [Senna 1 each PO DAILY 03/16/17 03/21/17 Plus] Acetaminophen [Tylenol] 650 mg PO Q6H PRN 03/21/17 03/21/17 Losartan/Hydrochlorothiazide 1 each PO DAILY 03/21/17 03/21/17 [Losartan-Hctz 100-12.5 mg Tab] PredniSONE [Vance] 5 mg PO DAILY 03/21/17 03/21/17 Previous Rx's Medication Instructions Recorded HYDROcodone/Acet 5/325 mg [[place] 1 tab PO Q4H PRN #25 tablet 11/06/16 5-325 mg] Allergies Allergy/AdvReac Type Severity Reaction Status Date / Time No Known Allergies Allergy Verified 02/16/17 14:01 All systems ED: reviewed and negative except as stated. Constitutional: Denies: fever Cardiovascular: Denies: chest pain Respiratory: Denies: cough, dyspnea Gastrointestinal: Denies: abdominal pain, nausea, vomiting, diarrhea, constipation, hematemesis, melena, hematochezia Genitourinary: Reports: urgency, dysuria, frequency, other (Cloudy urine). Denies: hematuria, discharge, testicular pain, testicular mass, genital lesions Integumentary: Denies: rash, abrasion Neurological: Denies: weakness, numbness, paresthesias Abdominal Pain PMH - Past Medical History Medical history: Reports: atrial fibrillation, CVA, GERD, hypertension, other Psychiatric history: Reports: depression, other - Social History Smoking status: Former smoker Alcohol use: Reports: none, rarely Drug use: Reports: none Physical Exam - General Limitations: no limitations General appearance: alert, in no apparent distress - Head Head exam: atraumatic, normocephalic, normal inspection - Eye Eye exam: Present: normal appearance, PERRL, EOMI - ENT ENT exam: normal exam, normal oropharynx, mucous membranes moist - Neck Neck exam: Present: normal inspection, full ROM, trachea midline - Chest Chest inspection: Present: normal inspection, symmetric chest wall rise - Respiratory Respiratory exam: Present: normal lung sounds bilaterally - Cardiovascular Cardiovascular exam: Present: regular rate, normal rhythm, normal heart sounds - Abdominal Exam Abdominal exam: Present: soft, Non-Tender. Absent: tenderness, distention, guarding, rebound, rigidity - Male exam: Present: normal inspection, normal testicular lie, other (Foul- smelling urine in diaper). Absent: circumcised, paraphimosis, penile swelling, lesions, induration, erythema, priapism, ulcerations, inguinal lymphadenopathy, testicular tenderness, urethral discharge, scrotal swelling - Extremities Exam Extremities exam: Present: normal inspection, full ROM. Absent: tenderness, pedal edema - Neurological Exam Neurological exam: Present: alert, oriented X3 - Psychiatric Psychiatric exam: Present: normal affect, normal mood - Skin Skin exam: Present: warm, dry, intact, normal color Course Course Narrative: Vitals within normal limits on my exam. Physical exam shows lungs clear to auscultation, heart regular rate and rhythm, abdomen soft and nontender. Negative CVA tenderness bilaterally. exam showed no erythema, edema, lesions. He did have also a urine in diaper. Concern currently for UTI versus kidney stone. We will obtain CBC, BMP, CT abdomen and pelvis, urinalysis. 21:35 urinalysis shows evidence of UTI. CT of the abdomen and pelvis shows no ureterolithiasis but does show increased. After straining that could represent pyelonephritis. He also has bladder wall thickening consistent with cystitis. He does have an elevated white blood cell count as well. Will admit to the hospitalist for further care at this time. We will start Rocephin. Vital Signs Temperature 98.0 F 03/21/17 20:20 Pulse Rate 69 03/21/17 20:20 Respiratory Rate 20 03/21/17 20:20 Blood Pressure 145/83 03/21/17 20:20 O2 Sat by Pulse Oximetry 96 03/21/17 20:20 Temperature 98.0 F 03/21/17 20:20 Pulse Rate 70 03/21/17 21:27 Respiratory Rate 20 03/21/17 21:27 Blood Pressure 158/77 03/21/17 21:27 O2 Sat by Pulse Oximetry 94 03/21/17 21:27 Oxygen Delivery Oxygen Delivery Room Air Abdominal Pain - MDM Narrative Medical decision making narrative: Vitals within normal limits on my exam. Physical exam shows lungs clear to auscultation, heart regular rate and rhythm, abdomen soft and nontender. Negative CVA tenderness bilaterally. exam showed no erythema, edema, lesions. He did have also a urine in diaper. Concern currently for UTI versus kidney stone. We will obtain CBC, BMP, CT abdomen and pelvis, urinalysis. 21:35 urinalysis shows evidence of UTI. CT of the abdomen and pelvis shows no ureterolithiasis but does show increased. After straining that could represent pyelonephritis. He also has bladder wall thickening consistent with cystitis. He does have an elevated white blood cell count as well. Will admit to the hospitalist for further care at this time. We will start Rocephin. - Medical Records Medical records reviewed: Yes I reviewed the patient's medical records. - Lab Data Lab results reviewed: Yes I reviewed the patient's lab results. Result diagrams: 03/21/17 20:33 03/21/17 20:33 Lab Results 03/21/17 03/21/17 03/21/17 Range/Units 20:33 20:33 21:07 WBC 12.4 H (4.3-11.1) K/mcL RBC 4.67 (4.19-5.50) M/mcL Hgb 13.7 (12.9-16.9) g/dL Hct 40.6 (37.5-50.1) % MCV 86.9 (83.0-100.0) fL MCH 29.3 (28.0-33.3) pg MCHC 33.7 (31.6-35.5) g/dL RDW 14.9 H (11.5-14.5) % Plt Count 265 (140-400) K/mcL MPV 8.9 L (9.4-12.4) fL Immature Gran % 1.8 (0-4) % Seg Neutrophils % 76.3 % Lymphocytes % 10.9 % Monocytes % 8.2 % Eosinophils % 2.3 % Basophils % 0.5 % Neutrophils # 9.4 H (1.6-8.9) K/mcL Lymphocytes # 1.4 (0.6-4.6) K/mcL Monocytes # 1.0 (0.0-1.3) K/mcL Eosinophils # 0.3 (0.0-0.6) K/mcL Basophils # 0.1 (0.0-0.2) K/mcL Nucleated RBCs/100 WBC 0.2 H (0) /100 WBC Sodium 136 (136-145) mEq/L Potassium 3.5 (3.5-5.1) mEq/L Chloride 100 (98-107) mEq/L Carbon Dioxide 27 (23-29) mEq/L BUN 21 (8-23) mg/dL Creatinine 1.17 (0.70-1.30) mg/dL Est GFR ( Amer) > 60 (> 60) Est GFR (Non-Af Amer) > 60 (> 60) BUN/Creatinine Ratio 18 (6-26) Glucose 107 H (70-105) mg/dL Calculated Osmolality 285 (280-300) Calcium 9.0 (8.6-10.3) mg/dL Urine Color Red A (Yellow) Urine Clarity Turbid A (Clear) Urine pH 5.5 (5.0-8.0) pH Units Ur Specific [place] 1.023 (1.010-1.025) Urine Protein 100 H (Neg-Trace) mg/dL Urine Glucose (UA) Normal (Normal) mg/dL Urine Ketones Trace H (Negative) mg/dL Urine Blood Large H (Negative) Urine Nitrite Positive A (Negative) Urine Bilirubin Moderate H (Negative) Urine Urobilinogen Normal (Normal) mg/dL Ur Leukocyte Esterase Moderate H (Negative) Urine Microscopic RBC TNTC H (0-3) per hpf Urine Microscopic WBC TNTC H (0-3) per hpf Ur Squamous Epith Cells Many H (None-Few) per lpf Urine Bacteria Test Not Performed Hyaline Casts Test Not Performed Urine Yeast Test Not Performed Ur Culture Indicated? NO. (NO) - Radiology Data Radiology results reviewed: Yes I reviewed the patient's radiology results. Abdomen/Pelvis CT 03/21/17 20:24 IMPRESSION: 1. Punctate nonobstructing left renal calculus. Otherwise no obstructing calculi identified. No hydronephrosis. 2. Nonspecific perinephric stranding bilaterally, increased from 10/30/2016. Findings are nonspecific and could represent of third-spacing of fluids, renal insufficiency or infection. 3. The bladder is decompressed and not well evaluated. However if there is nonspecific wall thickening with trabeculation, which are nonspecific and could represent sequela of bladder outlet obstruction given prostatomegaly. Correlation for cystitis is recommended. 4. Normal appendix. 5. Small fat containing right inguinal hernia. Nonspecific 2.5 cm fluid collection in the left groin, new from 10/30/2016. 6. Age-indeterminate mild to moderate compression deformities of the superior endplates of the L3 and L5 vertebral bodies with approximately 25% loss of vertebral body height, though new from 10/30/2016. 7. Stable pleural thickening of the left lung base with associated scarring and atelectasis, including probable focal rounded atelectasis. D/ / 03/21/2017 21:22:45 Damion Gray MD / sami Interpreting Provider: MD Carrol Charles - Carrol Situation: Demographics, MOA Background: Presenting Complaint, Relevant PMH, Meds, & Allergies Assessment: Vital Signs, Course and respsone to treatment, Exam Concerns, Patient/Family Expectation, Pertinant Lab Results, Outstanding Labs Recommendation: Barrier(s) to disposition, Recommendation based on pending studies, treatments, or consults SHermelindo Report Given to: Dr. Andrey Branham Repor Time: 21:50 Attestation Statement - Attestation Attestation: I examined this patient and my medical decision-making was reviewed with the Resident Physician. I agree with the documented findings, disposition and treatment plan as described except to the extent set forth below. Patient presents to the emergency department with a chief complaint of pain in his penis and flank. Since from the care home. History of kidney stones and UTIs. On examination he is uncomfortable. Abdomen soft. Blood pressure stable. Lungs clear. Plan. Patient with perinephric stranding. UTI. Started on IV antibiotic and admitted to medicine. Patient does not meet sepsis criteria.
[2017-03-21 20:44] LABS: Basophils # 0.1 K/mcL (0.0-0.2); Basophils % 0.5 %; Eosinophils # 0.3 K/mcL (0.0-0.6); Eosinophils % 2.3 %; Hematocrit 40.6 % (37.5-50.1); Hemoglobin 13.7 g/dL (12.9-16.9); Immature Granulocytes % 1.8 % (0-4); Lymphocytes # 1.4 K/mcL (0.6-4.6); Lymphocytes % 10.9 %; Mean Corpuscular HGB Conc 33.7 g/dL (31.6-35.5); Mean Corpuscular Hemoglobin 29.3 pg (28.0-33.3); Mean Corpuscular Volume 86.9 fL (83.0-100.0); Mean Platelet Volume 8.9 fL (9.4-12.4); Monocytes % 8.2 %; Neutrophils # 9.4 K/mcL (1.6-8.9); Nucleated Red Blood Cells 0.2 /100 WBC (0); Platelet Count 265 K/mcL (140-400); Red Blood Count 4.67 M/mcL (4.19-5.50); Red Cell Distribution Width 14.9 % (11.5-14.5); Segmented Neutrophils % 76.3 %
[2017-03-21 20:58] LABS: BUN/Creatinine Ratio 18 (6-26); Blood Urea Nitrogen 21 mg/dL (8-23); Carbon Dioxide 27 mEq/L (23-29); Chloride 100 mEq/L (98-107); Glucose 107 mg/dL (70-105); Osmolality,Calculated 285 (280-300); Potassium 3.5 mEq/L (3.5-5.1); Sodium 136 mEq/L (136-145); eGFR For African Americans > 60 (> 60); eGFR For Non-African Americans > 60 (> 60)
[2017-03-21 21:11] LABS: Bilirubin,Urine Moderate (Negative); Blood,Urine Large (Negative); Clarity,Urine Turbid (Clear); Color,Urine Red (Yellow); Glucose,Urine (UA) Normal (Normal); Ketones,Urine Trace mg/dL (Negative); Leukocyte Esterase,Urine Moderate (Negative); Nitrite,Urine Positive (Negative); PH,Urine 5.5 pH Units (5.0-8.0); Protein,Urine 100 mg/dL (Neg-Trace); Specific Gravity,Urine 1.023 (1.010-1.025); Urobilinogen,Urine Normal (Normal)
[2017-03-21 21:14] LABS: Squamous Epithelial Cell,Urine Many per lpf (None-Few); WBC,Urine TNTC per hpf (0-3)
[2017-03-21 21:22] LABS: RBC,Urine TNTC per hpf (0-3)
[2017-03-21] MEDS ORDERED: cefTRIAXone 2,000 MG in Water for inj. (sterile) 20 ML IVP ONE (21:37)
[2017-03-21] MEDS ORDERED: *HR* HYDROcodone/Acet 5/325 mg TABLET PO ONE (22:04)
[2017-03-21] MEDS ORDERED: Ondansetron 4 MG/2 ML VIAL IVP PRN (22:56)
[2017-03-21] MEDS ORDERED: *HR* Promethazine 25 MG/ML VIAL IVP PRN (22:56)
[2017-03-21] MEDS ORDERED: Naloxone 0.4 MG/ML INJ IVP PRN (22:56)
--- NOTE | 2017-03-21 23:09 | Internal Med History&Physical ---
Date of Encounter: 03/21/17 Time of Encounter: 22:30 Assessment and Plan (1) Sepsis Current visit: Yes Status: Acute Will admitted the patient into [facility] he does meet sepsis criteria with elevated WBC, and source of infection as a UTI continue him on empirical antibiotic Rocephin continue him on IV hydration we will follow on blood cultures and urine culture sent in the ER Qualifiers: Qualified Code(s): A41.9 - Sepsis, unspecified organism (2) Pyelonephritis Current visit: Yes Status: Acute Reviewed his CT of the abdomen - does show punctate non-obstructing left renal calculi, and possible pyelo nephritis continue antibiotic IV Rocephin (3) UTI (urinary tract infection) Current visit: Yes Status: Acute Qualifiers: Urinary tract infection type: site unspecified Hematuria presence: without hematuria Qualified Code(s): N39.0 - Urinary tract infection, site not specified (4) Paroxysmal A-fib Current visit: Yes Status: Acute Rate controlled with the metoprolol on Eliquis for anti-coagulation (5) Atherosclerosis of [place] arteries of left leg with ulceration of other part of lower left leg Current visit: No Status: Chronic Reviewed recent aortography and b/l LE by Dr. Almanza noticed severe PVD. Dr. Almanza mentioned about elective revascularization will consult him in AM continue local wound care for now (6) Peripheral arterial disease Current visit: Yes Status: Acute (7) Cerebrovascular disease Current visit: No Status: Chronic cont home meds (8) Essential hypertension Current visit: No Status: Chronic Resumed Patient home medications Internal Medicine - H&P: HPI Chief complaint: UTI / Dysuria Admitted From: Emergency Dept Plans for Post Hospital Care: [facility] History of present illness: Mr. Jimenez is a 71 year old male with known PMH of Paroxysmal atrial fibrillation on eliquis for anti coag, nephrolithiasis, CVA, hypertension and severe PVD with left foot chronic ishcemic ulcer who is residing at local SNF pt was brought into ER today c/o dysuria from last 2 days as well as Left flank pain which is 6/10 in severity, sharp pain and non radiating. He is alert, awake and O x 3, denied any CP. Does c/o generalized body pains and left flank pain. Pt does have chronic Left foot ischemic ulcers, for which he follows surgeon Dr. Reed at wound care center, also had Abdominal / Ext aortography on 03/16/[address] Almanza. Past Med Surg Social Fam HX - Past Medical History Medical history: atrial fibrillation, CVA, GERD, hypertension, other Psychiatric history: depression, other - Past Surgical History Surgical History: vascular surgery, other - Social History Smoking Status: Former smoker Smokeless Tobacco Status: No Alcohol use: none, rarely Drug use: none - Family History Mother Living Status: Internal Medicine - H&P: Meds Aspirin [Adult Low Dose Aspirin EC] 81 mg PO DAILY 03/31/15 [History] Metoprolol [Lopressor] 100 mg PO BID 03/31/15 [History] Tamsulosin [Flomax] 0.4 mg PO BID 03/31/15 [History] Apixaban [Eliquis] 5 mg PO BID 11/03/16 [History] Azathioprine [Imuran] 1 tab PO DAILY 11/03/16 [History] Omeprazole [PriLOSEC] 20 mg PO DAILY 11/04/16 [History] predniSONE [PredniSONE] 10 mg PO DAILY 11/04/16 [History] HYDROcodone/Acet 5/325 mg [[place] 5-325 mg] 1 tab PO Q4H PRN #25 tablet 11/06/16 [Rx] PARoxetine HCl [Paroxetine HCl] 20 mg PO DAILY 03/16/17 [History] Potassium Chloride [Klor-Con 10] 10 meq PO DAILY 03/16/17 [History] Sennosides/Docusate Sodium [Senna Plus] 1 each PO DAILY 03/16/17 [History] Acetaminophen [Tylenol] 650 mg PO Q6H PRN 03/21/17 [History] Losartan/Hydrochlorothiazide [Losartan-Hctz 100-12.5 mg Tab] 1 each PO DAILY 11/26 [History] PredniSONE [Vance] 5 mg PO DAILY 03/21/17 [History] 3 Allergy/AdvReac Type Severity Reaction Status Date / Time No Known Allergies Allergy Verified 02/16/17 14:01 All Systems PM: A 10-system review of systems was performed and is negative for pertinent findings except as documented above in the HPI. Review of systems: All the systems are reviewed everything is benign except the systems and symptoms I mentioned in the history of present illness - Constitutional Vitals: Temp Pulse Resp BP Pulse Ox 98.1 F 81 18 156/64 95 03/21/17 22:54 03/21/17 22:54 03/21/17 22:54 03/21/17 22:54 03/21/17 22:54 General appearance: Present: A&O X 3, answers questions appropriately Exam: Looks very weak and lethargic - Head Head exam: Present: atraumatic, normal inspection - Neck Neck exam general surgery: Present: supple - Respiratory Respiratory exam: Present: decreased breath sounds. Absent: rales, respiratory distress, rhonchi, wheezes - Cardiovascular Cardiovascular exam: Present: RRR, +S1, +S2. Absent: tachycardia - GI/Abdominal GI/Abdominal exam: Present: normal bowel sounds, soft. Absent: rebound, rigid, tenderness - Extremities Exam Extremities exam: Absent: calf tenderness, pedal edema, tenderness Additional comments: chronic non healing ulcers over left foot - Back Exam Back exam: Present: CVA tenderness (L). Absent: CVA tenderness (R) - Neurological Exam Neurological exam: Present: alert, oriented X3, no focal deficits. Absent: facial droop, speech deficit - Psychiatric Psychiatric exam: Present: depressed - Skin Skin exam: Absent: rash Internal Med - H&P Results - Labs CBC & Chem 7: 03/21/17 20:33 03/21/17 20:33
[2017-03-21] MEDS ORDERED: *HR* LORazepam 0.5 MG TABLET PO PRN (23:11)
[2017-03-21] MEDS: Metoprolol 100 MG TABLET PO SCH (23:37)
[2017-03-21] MEDS: 0.9 % Sodium Chloride 1,000 ML IVC SCH (23:37)
[2017-03-22] MEDS: *HR* HYDROcodone/Acet 5/325 mg TABLET PO PRN (05:50)
[2017-03-22 08:10] LABS: Basophils % 0.5 %; Eosinophils # 0.4 K/mcL (0.0-0.6); Eosinophils % 4.2 %; Hematocrit 36.5 % (37.5-50.1); Immature Granulocytes % 2.5 % (0-4); Lymphocytes # 0.9 K/mcL (0.6-4.6); Lymphocytes % 10.1 %; Mean Corpuscular HGB Conc 32.9 g/dL (31.6-35.5); Mean Corpuscular Hemoglobin 28.6 pg (28.0-33.3); Mean Corpuscular Volume 87.1 fL (83.0-100.0); Mean Platelet Volume 9.2 fL (9.4-12.4); Monocytes # 0.6 K/mcL (0.0-1.3); Monocytes % 6.3 %; Neutrophils # 6.7 K/mcL (1.6-8.9); Platelet Count 281 K/mcL (140-400); Red Blood Count 4.19 M/mcL (4.19-5.50); Red Cell Distribution Width 14.7 % (11.5-14.5); Segmented Neutrophils % 76.4 %
[2017-03-22 08:54] LABS: BUN/Creatinine Ratio 22 (6-26); Blood Urea Nitrogen 22 mg/dL (8-23); Calcium 8.5 mg/dL (8.6-10.3); Carbon Dioxide 27 mEq/L (23-29); Chloride 103 mEq/L (98-107); Glucose 88 mg/dL (70-105); Magnesium 1.5 mg/dL (1.6-2.6); Osmolality,Calculated 289 (280-300); Potassium 3.4 mEq/L (3.5-5.1); Sodium 138 mEq/L (136-145); eGFR For African Americans > 60 (> 60); eGFR For Non-African Americans > 60 (> 60)
[2017-03-22] MEDS: Sennosides/Docusate Sodium TABLET PO SCH (10:05)
[2017-03-22] MEDS: Metoprolol 100 MG TABLET PO SCH ×2 (10:05→20:46)
[2017-03-22] MEDS: Apixaban 5 MG TABLET PO SCH ×2 (10:06→20:47)
[2017-03-22] MEDS: Aspirin Enteric Coated 81 MG Tablet PO SCH (10:06)
[2017-03-22] MEDS: Acetaminophen 325 MG TABLET PO PRN ×2 (10:13→20:47)
--- NOTE | 2017-03-22 17:19 | Internal Med Progress Note ---
Date of Encounter: 03/22/17 Time of Encounter: 13:20 - Assessment and plan (1) Pyelonephritis Current Visit: Yes Status: Suspected Assessment and plan: CT abdomen shows punctate non-obstructive left renal stones, perinephric stranding, somewhat increased from last CT but nonspecific; patient does not appear sick/toxic; UA shows numerous RBC and WBC but appears contaminated; urine culture has not been ordered; spoke to lab and added culture ; continue IV Rocephin fir now; IV hydration and supportive care; (2) UTI (urinary tract infection) Current Visit: Yes Status: Suspected Assessment and plan: plan as above; Qualifiers: Urinary tract infection type: acute cystitis Hematuria presence: without hematuria Qualified Code(s): N30.00 - Acute cystitis without hematuria (3) Sepsis Current Visit: Yes Status: Ruled-out Assessment and plan: patient had mild leukocytosis at admission but no fever, tachycardia, lactic acidosis or any sings of sepsis; sepsis ruled out; Qualifiers: Sepsis type: sepsis due to unspecified organism Qualified Code(s): A41.9 - Sepsis, unspecified organism (4) Atrial fibrillation Current Visit: Yes Status: Chronic Assessment and plan: currently rate-controlled; continue beta verna, [facility] anticoagulation with Eliquis. 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 Absent: accessory muscle use, rales, rhonchi, wheezes - Cardiovascular Cardiovascular exam: Present: RRR, +S1, +S2. Absent: diastolic murmur, gallop, rubs, systolic murmur - GI/Abdominal GI/Abdominal exam: Present: normal bowel sounds, soft, no peritoneal signs. Absent: distended, tenderness - Extremities Exam Extremities exam: Present: warm, radial pulses palpable and symmetrical. Absent : calf tenderness, cyanotic, pedal edema Additional comments: left-sided weakness from previous stroke Internal Medicine: Result - Labs CBC & Chem 7: 03/23/17 06:37 03/23/17 06:37 Labs: Short CBC 03/22/17 Range/Units 07:23 WBC 8.8 (4.3-11.1) K/mcL Hgb 12.0 L D (12.9-16.9) g/dL Hct 36.5 L (37.5-50.1) % Plt Count 281 (140-400) K/mcL Neutrophils # 6.7 (1.6-8.9) K/mcL BMP 03/22/17 07:23 Sodium 138 Potassium 3.4 L Chloride 103 Carbon Dioxide 27 BUN 22 Creatinine 1.00 Glucose 88 Calcium 8.5 L Consult Discharge Plan - Plan Additional Instructions: F/up with PCP in 1-2 weeks Referrals: Nina Smith, STAINING MACHINE OPERATOR [Primary Care Provider] - Prescriptions: Levofloxacin [Levaquin] 500 mg PO DAILY #7 tablet Phenazopyridine [Pyridium] 100 mg PO TID #9 tablet
[2017-03-22] MEDS ORDERED: cefTRIAXone 1,000 MG in Water for inj. (sterile) 20 ML 10 ML IVPB SCH (21:00)
[2017-03-22] MEDS ORDERED: Potassium Chloride Elixir 20 MEQ/15 ML UDC PO ONE (23:06)
[2017-03-22] MEDS ORDERED: Magnesium Sulfate 2 GM in D5% in Water 100 ML IVPB ONE (23:06)
[2017-03-23] MEDS: 0.9 % Sodium Chloride 1,000 ML IVC SCH (01:09)
[2017-03-23 06:46] LABS: Basophils # 0.1 K/mcL (0.0-0.2); Eosinophils # 0.4 K/mcL (0.0-0.6); Eosinophils % 8.5 %; Hematocrit 36.8 % (37.5-50.1); Hemoglobin 11.9 g/dL (12.9-16.9); Immature Granulocytes % 1.4 % (0-4); Lymphocytes # 0.7 K/mcL (0.6-4.6); Lymphocytes % 14.1 %; Mean Corpuscular HGB Conc 32.3 g/dL (31.6-35.5); Mean Corpuscular Hemoglobin 29.5 pg (28.0-33.3); Mean Corpuscular Volume 91.3 fL (83.0-100.0); Mean Platelet Volume 9.3 fL (9.4-12.4); Monocytes # 0.4 K/mcL (0.0-1.3); Monocytes % 7.3 %; Neutrophils # 3.4 K/mcL (1.6-8.9); Platelet Count 227 K/mcL (140-400); Red Blood Count 4.03 M/mcL (4.19-5.50); Red Cell Distribution Width 14.9 % (11.5-14.5); Segmented Neutrophils % 67.7 %
[2017-03-23 07:08] LABS: BUN/Creatinine Ratio 17 (6-26); Blood Urea Nitrogen 16 mg/dL (8-23); Calcium 8.2 mg/dL (8.6-10.3); Carbon Dioxide 22 mEq/L (23-29); Chloride 109 mEq/L (98-107); Glucose 84 mg/dL (70-105); Magnesium 2.1 mg/dL (1.6-2.6); Osmolality,Calculated 284 (280-300); Potassium 4.2 mEq/L (3.5-5.1); Sodium 137 mEq/L (136-145); eGFR For African Americans > 60 (> 60); eGFR For Non-African Americans > 60 (> 60)
[2017-03-23] MEDS: Metoprolol 100 MG TABLET PO SCH (09:09)
[2017-03-23] MEDS: Sennosides/Docusate Sodium TABLET PO SCH (09:09)
[2017-03-23] MEDS: Apixaban 5 MG TABLET PO SCH (09:10)
[2017-03-23] MEDS: Aspirin Enteric Coated 81 MG Tablet PO SCH (09:10)
[2017-03-23] MEDS: *HR* HYDROcodone/Acet 5/325 mg TABLET PO PRN (12:39)
--- NOTE | 2017-03-23 13:25 | Discharge Summary ---
Date of Encounter: 03/23/17 Time of Encounter: 10:45 - Discharge Diagnosis (1) Pyelonephritis Priority: Primary Status: Suspected (2) UTI (urinary tract infection) Priority: Primary Status: Suspected Qualifiers: Urinary tract infection type: acute cystitis Hematuria presence: with hematuria Qualified Code(s): N30.01 - Acute cystitis with hematuria (3) Sepsis Priority: Primary Status: Ruled-out Qualifiers: Sepsis type: sepsis due to unspecified organism Qualified Code(s): A41.9 - Sepsis, unspecified organism (4) Paroxysmal A-fib Priority: Secondary Status: Chronic (5) Peripheral arterial disease Priority: Secondary Status: Chronic (6) Depression Priority: Secondary Status: Chronic Qualifiers: Depression Type: unspecified Qualified Code(s): F32.9 - Major depressive disorder, single episode, unspecified (7) 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 of muscle Priority: Secondary Status: Chronic (8) Essential hypertension Priority: Secondary Status: Chronic - Discharge Medications Prescriptions: Levofloxacin [Levaquin] 500 mg PO DAILY #7 tablet Phenazopyridine [Pyridium] 100 mg PO TID #9 tablet Home Medications: Aspirin [Adult Low Dose Aspirin EC] 81 mg PO DAILY 03/31/15 [History] Metoprolol [Lopressor] 100 mg PO BID 03/31/15 [History] Tamsulosin [Flomax] 0.4 mg PO BID 03/31/15 [History] Apixaban [Eliquis] 5 mg PO BID 11/03/16 [History] Azathioprine [Imuran] 1 tab PO DAILY 11/03/16 [History] Omeprazole [PriLOSEC] 20 mg PO DAILY 11/04/16 [History] predniSONE [PredniSONE] 10 mg PO DAILY 11/04/16 [History] PARoxetine HCl [Paroxetine HCl] 20 mg PO DAILY 03/16/17 [History] Potassium Chloride [Klor-Con 10] 10 meq PO DAILY 03/16/17 [History] Sennosides/Docusate Sodium [Senna Plus] 1 each PO DAILY 03/16/17 [History] Acetaminophen [Tylenol] 650 mg PO Q6H PRN 03/21/17 [History] Losartan/Hydrochlorothiazide [Losartan-Hctz 100-12.5 mg Tab] 1 each PO DAILY 11/26 [History] Levofloxacin [Levaquin] 500 mg PO DAILY #7 tablet 03/23/17 [Rx] Phenazopyridine [Pyridium] 100 mg PO TID #9 tablet 03/23/17 [Rx] Allergies/Adverse Reactions: 3 Allergy/AdvReac Type Severity Reaction Status Date / Time No Known Allergies Allergy Verified 02/16/17 14:01 Date of admission: 03/21/17 22:56 Primary care physician: Nina Smith CNP Discharging clinician: Niru Mahmood Anticipated date of discharge: 03/23/17 - Patient Status Disposition: Transfer SNF Condition: Fair Functional capacity at discharge: wheelchair bound Overall status at discharge: patient is progressing back to baseline - Discharge Instructions Follow Up With: Nina Smith CNP [Primary Care Provider] - ([facility]) Additional Instructions: F/up with PCP in 1-2 weeks - Diet and Activity Activity: as per physical therapy Diet: low fat, low cholesterol, low salt diet Hospital course: Mr. Jimenez is a 71 year old male with the above medical problems, who was sent from [facility] due to dysuria and burning micturition. He was noted to have mild leukocytosis but no sepsis at admission. Urinalysis was suggestive of UTI with hematuria, pyuria and he was started on IV Rocephin. Urine culture subsequently negative. CT abdomen/pelvis showed punctate nonobstructing calculi in left kidney with B/L perinephric stranding. He received IV hydration and pain control and started on Pyridium. His symptoms could have been from small renal stones. He is currently medically stable for discharge back to [facility]. - Time Spent with Patient Total time spent providing and/or coordinating discharge services: Greater than 30 minutes (45 min) - Constitutional Vitals: Temp Pulse Resp BP Pulse Ox 97.6 F 82 16 118/62 95 03/23/17 11:11 03/23/17 11:11 03/23/17 11:11 03/23/17 11:11 03/23/17 11:11 General appearance: Present: A&O X 3, answers questions appropriately - Cardiovascular Cardiovascular exam: Present: RRR, +S1, +S2. Absent: diastolic murmur, gallop, rubs, systolic murmur
--- NOTE | 2017-03-23 13:30 | Physician Discharge Referral ---
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 Priority: Secondary Status: Chronic (8) Essential hypertension Priority: Secondary Status: Chronic Expected Duration of Placement: FDC Prognosis: Fair Aware of Diagnosis: Patient Aware of Prognosis: Patient - Transfer Medications Prescriptions: Levofloxacin [Levaquin] 500 mg PO DAILY #7 tablet Phenazopyridine [Pyridium] 100 mg PO TID #9 tablet Home Medications: Aspirin [Adult Low Dose Aspirin EC] 81 mg PO DAILY 03/31/15 [History] Metoprolol [Lopressor] 100 mg PO BID 03/31/15 [History] Tamsulosin [Flomax] 0.4 mg PO BID 03/31/15 [History] Apixaban [Eliquis] 5 mg PO BID 11/03/16 [History] Azathioprine [Imuran] 1 tab PO DAILY 11/03/16 [History] Omeprazole [PriLOSEC] 20 mg PO DAILY 11/04/16 [History] predniSONE [PredniSONE] 10 mg PO DAILY 11/04/16 [History] PARoxetine HCl [Paroxetine HCl] 20 mg PO DAILY 03/16/17 [History] Potassium Chloride [Klor-Con 10] 10 meq PO DAILY 03/16/17 [History] Sennosides/Docusate Sodium [Senna Plus] 1 each PO DAILY 03/16/17 [History] Acetaminophen [Tylenol] 650 mg PO Q6H PRN 03/21/17 [History] Losartan/Hydrochlorothiazide [Losartan-Hctz 100-12.5 mg Tab] 1 each PO DAILY 11/26 [History] Levofloxacin [Levaquin] 500 mg PO DAILY #7 tablet 03/23/17 [Rx] Phenazopyridine [Pyridium] 100 mg PO TID #9 tablet 03/23/17 [Rx] Allergies/Adverse Reactions: 3 Allergy/AdvReac Type Severity Reaction Status Date / Time No Known Allergies Allergy Verified 02/16/17 14:01 - Respiratory Orders Smoking Cessation: Smoking cessation has been advised. For more information, call the [place] Tobacco Quit Line at 7-848-KIDB-NOW. - Advance Directives Code Status: Full Code - Mobility Orders Bedrest - Rehabiliation Orders Rehab Potential: Poor Rehab Orders: ROM Exercises, Evaluation for Physical Therapy, Evaluation for Occupational Therapy - Diet Orders Cardiac CERTIFICATION: I certify that the transfer of the above named patient to an Extended Care Facility is necessary for the continuing treatment of the diagnosis listed. The above information is true and accurate reflection of patient's current condition. Confidential - Redisclosure prohibited without a patient's written consent.
[2017-03-23 14:10] VITALS: BP 117/53
== END 2017-03-23 16:54 | DRG 690 ==
LOC: EMEROO 20:17 → 3ANU 20:17 → SUATTDRO 22:56
PROVIDERS: ADMIT Internal Medicine Hematology & Oncology; ATTEND Internal Medicine

== ENCOUNTER 2017-04-07 07:14 | Inpatient (IN) ==
[~2017-04-07 07:14] MED LIST: Vancomycin 1,000 MG, Sodium Chloride IRRigation 1,000 ML IR ONE
[2017-04-07] MEDS ORDERED: *HR* Midazolam HCl 2 MG/2 ML VIAL ONE (07:37)
[2017-04-07] MEDS ORDERED: Dexamethasone 4 MG/ML VIAL ONE (07:37)
[2017-04-07] MEDS ORDERED: *HR* PHENYLEPHRINE 1,000 MCG/10 ML SYRINGE IVP ONE ×2 (07:37→08:46)
[2017-04-07] MEDS ORDERED: *HR* FentaNYL (PF) 100 MCG/2 ML VIAL ONE (07:37)
[2017-04-07] MEDS ORDERED: *HR* Rocuronium Bromide 50 MG/5 ML VIAL ONE (07:37)
[2017-04-07] MEDS ORDERED: *HR* Succinylcholine 200 MG/10 ML VIAL IVP ONE (07:37)
[2017-04-07] MEDS ORDERED: Lidocaine -MPF 2% 2 ML VIAL ONE (07:37)
[2017-04-07] MEDS ORDERED: *HR* Propofol 200 MG/20 ML VIAL IVP ONE (07:37)
[2017-04-07] MEDS ORDERED: Ondansetron 4 MG/2 ML VIAL ONE (07:37)
[2017-04-07] MEDS ORDERED: *HR* Remifentanil 2 MG VIAL IVP ONE (07:38)
[2017-04-07] MEDS ORDERED: CeFAZolin Syr 2,000MG/20 ML 2,000 MG/20 ML SYRINGE IVPB ONE (07:45)
[2017-04-07] MEDS ORDERED: Ringers Solution, Lactated 1,000 ML IVC SCH ×2 (07:45→09:45)
[2017-04-07] MEDS ORDERED: Heparin 1,000 UNITS/500 mL 500 ML ONE (07:53)
--- NOTE | 2017-04-07 08:00 | History & Physical Report ---
Date of Encounter: 04/07/17 Time of Encounter: 07:58 24 Hour HP Update - Instructions Instructions: If the History and Physical is less than 30 days old and was completed prior to A.M. admission and or procedure and has NOT been updated on calendar day of procedure please complete this update prior to performing procedure. - Update Patient reports changes in Medical Condition: No Changes in examination, assessment, or condition: No Changes in Medication: No Preop tests/diagnostics Reviewed: Yes Surgery Remains Indicated: Yes Consent for Planned Operative Procedure(s) Verified: Yes - Pre-Operative Checklist Preoperative Checklist Indicated: Yes Prophylactic Antibiotic Ordered: Yes (Vancomycin due to MRSA risk) Home Medications Include Beta Charmaine: Yes Beta Charmaine Taken Today (Day of Surgery): Yes Beta Charmaine Taken Yesterday (Day Prior to Surgery): Yes Is VTE Prophylaxis Indicated?: Yes
[2017-04-07] MEDS ORDERED: Famotidine 20 MG/2 ML VIAL IVP ONE (08:01)
[2017-04-07] MEDS ORDERED: Pregabalin 50 MG CAPSULE PO STA (08:02)
[2017-04-07] MEDS ORDERED: Acetaminophen IV 1,000 MG/100 ML INFUS..BTL IVPB ONE (08:02)
[2017-04-07] MEDS ORDERED: Heparin 1,000 UNITS/500 mL 1,000 ML ONE (08:09)
[2017-04-07] MEDS ORDERED: *HR* Phenylephrine 10 MG/ML VIAL ONE (08:51)
[2017-04-07] MEDS ORDERED: *HR* Heparin 5,000 UNIT/ML VIAL ONE ×2 (09:02→10:28)
[2017-04-07] MEDS ORDERED: MORPHINE SUL Oral CONC 10 MG/0.5 ML ORAL.SYG SL PRN (09:36)
[2017-04-07] MEDS ORDERED: Albuterol 2.5 MG/3 ML NEBULIZER IH ONE (09:36)
[2017-04-07] MEDS ORDERED: Ondansetron 4 MG/2 ML VIAL IVP ONE (09:36)
[2017-04-07] MEDS ORDERED: *HR* OxyCODONE Immed Rel 5 MG TABLET PO PRN ×2 (09:36→15:17)
[2017-04-07] MEDS ORDERED: Naloxone 0.4 MG/ML INJ IVP PRN ×2 (09:36→15:17)
[2017-04-07] MEDS ORDERED: *HR* OxyCODONE/APAP 5/325 TABLET PO PRN (09:36)
[2017-04-07] MEDS ORDERED: *HR* Meperidine 25 MG/ML SYRINGE IVP PRN (09:36)
--- NOTE | 2017-04-07 11:43 | Operative Note ---
Date of procedure: 04/07/17 Pre-op diagnosis: Peripheral Vascular Disease with Ulceration Post-op diagnosis: same Procedure: 1. Right common femoral artery to left common femoral artery bypass with 6mm PTFE graft. 2. Right common and deep femoral artery endarterectomy. Complications: None Anesthesia: GETA Surgeon: Jonah Almanza Was there an pediatric dental assistant present: No Estimated blood loss (cc): 100 Specimen: Right femoral plaque Condition: stable Disposition: PACU Procedure in Detail: Indications: The patient is a 71 year old male with a history of severe peripheral vascular disease with nonhealing ulceration. He was found to have significant iliac and femoral artery disease including a left iliac artery occlusion. He was scheduled for revascularization to alleviate his symptoms and reduce his risk of limb loss. Procedure: The patient was identified in the preoperative area. The risks, benefits, and alternatives of the procedure were discussed. All questions were answered. The patient was taken to the operating room and placed in supine position on the operating room table. After the induction of general endotracheal anesthesia, he was cleaned and draped in normal sterile fashion. An oblique incision was made over the right groin sharply. Hemostasis was obtained with electrocautery. Through a process of blunt, sharp, and electrocautery dissection, the right external iliac artery and femoral arteries were dissected circumferentially and surrounded with vessel loops. An oblique incision was then made over the left groin sharply. Hemostasis was obtained with electrocautery. Through a process of blunt, sharp, and electrocautery dissection, the left femoral vessels were dissected circumferentially and surrounded with vessel loops. A graft was tunneled between the right and left groin incisions. The patient received 5000 units of intravenous heparin and additional heparin throughout the procedure to maintain adequate anticoagulation. A longitudinal arteriotomy was then made in the right common femoral artery and then extended into the deep femoral artery. An occlusive right common and deep femoral artery plaque was encountered. Release of the vessel loop revealed no retrograde deep femoral artery flow. Using a dental freer, a right common femoral artery endarterectomy and a right deep femoral artery endarterectomy were performed. Proximal and distal endpoints were inspected and no elevated flaps were noted. Vigorous retrograde flow was noted from the right deep femoral artery. The graft was cut to fit the arteriotomy and then sutured in place with a running 6-0 Prolene. The vessels were flushed through the graft. Heparinized saline was infused into the graft lumen. The graft was clamped with an atraumatic clamp. Flow was restored in the right femoral vessels. Thrombin and gelfoam were used to aid in hemostasis. Tension was applied to the left femoral vessel loops. A longitudinal arteriotomy was made in the left common femoral artery and extended into the deep femoral artery. Thrombus was encountered in the proximal left common femoral artery. It was removed under direct vision. Significant retrograde flow was noted through the left deep femoral artery upon release of the vessel loop. The graft was cut to fit the defect. The graft was anastamosed with a running 6-0 Prolene. Prior to completing the anastamosis, the left femoral vessels were flushed through the graft anastamosis and heparin was infused into the lumen. The anastamosis was completed and flow was restored in the left lower extremity. Thrombin and gelfoam were used at the distal anastamosis. Polyphasic signals were noted distal to the anastamoses. The wounds were irrigated with antibiotic-containing saline. Platelet rich and platelet poor plasma were infused into the wounds. Meticulous hemostasis was obtained throughout the wound with electrocautery. Wounds were reapproximated with layers of 2-0 and 3-0 Vicryl. Skin was reapproximated with 3-0 Monocryl. Sterile dressing was applied. The patient was extubated and taken to recovery room in stable condition.o recovery room in stable condition.
[2017-04-07] MEDS ORDERED: Ondansetron 4 MG/2 ML VIAL IVP PRN (15:17)
[2017-04-07] MEDS ORDERED: *HR* HYDROcodone/Acet 5/325 mg TABLET PO PRN (15:17)
[2017-04-07] MEDS ORDERED: Acetaminophen 325 MG TABLET PO PRN (15:17)
[2017-04-07] MEDS ORDERED: 0.9 % Sodium Chloride 1,000 ML IVC SCH (15:17)
[2017-04-07] MEDS: *HR* Metoprolol 5 MG/5 ML VIAL IVP SCH ×2 (15:39→16:48)
[2017-04-07] MEDS: CeFAZolin Premix DUPLEX 2,000 MG/50 ML BAG IVPB SCH (15:41)
[2017-04-07] MEDS: VITAMIN D3 PO SCH (15:42)
[2017-04-07] MEDS: CALCIUM CARBONATE PO SCH (15:42)
[2017-04-07] MEDS ORDERED: Triamcinolone Acet 0.1% CRM 1 APPL GRAM TP SCH (21:00)
[2017-04-08] MEDS: CeFAZolin Premix DUPLEX 2,000 MG/50 ML BAG IVPB SCH (00:45)
[2017-04-08] MEDS: *HR* Metoprolol 5 MG/5 ML VIAL IVP SCH ×2 (00:46→06:30)
[2017-04-08 05:00] LABS: BUN/Creatinine Ratio 17 (6-26); Basophils % 0.5 %; Blood Urea Nitrogen 17 mg/dL (8-23); Calcium 8.9 mg/dL (8.6-10.3); Carbon Dioxide 28 mEq/L (23-29); Chloride 104 mEq/L (98-107); Eosinophils % 0.2 %; Glucose 98 mg/dL (70-105); Hematocrit 36.7 % (37.5-50.1); Hemoglobin 12.3 g/dL (12.9-16.9); Lymphocytes # 0.8 K/mcL (0.6-4.6); Lymphocytes % 9.4 %; Mean Corpuscular HGB Conc 33.5 g/dL (31.6-35.5); Mean Corpuscular Hemoglobin 29.1 pg (28.0-33.3); Mean Platelet Volume 9.1 fL (9.4-12.4); Monocytes # 0.7 K/mcL (0.0-1.3); Monocytes % 8.1 %; Neutrophils # 6.9 K/mcL (1.6-8.9); Osmolality,Calculated 286 (280-300); Platelet Count 403 K/mcL (140-400); Potassium 4.1 mEq/L (3.5-5.1); Red Blood Count 4.22 M/mcL (4.19-5.50); Red Cell Distribution Width 14.9 % (11.5-14.5); Segmented Neutrophils % 79.8 %; Sodium 137 mEq/L (136-145); eGFR For African Americans > 60 (> 60); eGFR For Non-African Americans > 60 (> 60)
[2017-04-08] MEDS ORDERED: *HR* Heparin 5,000 UNIT/ML VIAL SQ SCH ×2 (06:00)
--- NOTE | 2017-04-08 06:39 | Discharge Summary ---
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 His wound are healing. His feet are warm and pedal signals are present. He will be discharged today. (2) Essential hypertension Priority: Secondary Status: Chronic (3) Paroxysmal A-fib Priority: Secondary Status: Chronic (4) CKD (chronic kidney disease), stage III Priority: Secondary Status: Chronic (5) Chronic disease anemia Priority: Secondary Status: Chronic Comments: The patient has chronic anemia. He is hemodynamically stable without evidence of ongoing blood loss. - Hospital Course Hospital course: Mr. Jimenez is a 71 year old male with a history of peripheral vascular disease with ulceration. He was admitted and underwent a FEM-FEM bypass and endarterectomy on 04/07/17. He tolerated the procedure well and was discharged on post operative day #1 in stable condition without complications. - Time Spent with Patient Total time spent providing and/or coordinating discharge services: - Discharge Medications Prescriptions: HYDROcodone/Acet 5/325 mg [[place] 5-325 mg] 1 tab PO Q6HR PRN 6 Days #24 tablet PRN Reason: POSTOPERATIVE PAIN Home Medications: Aspirin [Adult Low Dose Aspirin EC] 81 mg PO DAILY 03/31/15 [History] Metoprolol [Lopressor] 100 mg PO BID 03/31/15 [History] Tamsulosin [Flomax] 0.8 mg PO HS 03/31/15 [History] Apixaban [Eliquis] 5 mg PO BID 11/03/16 [History] Azathioprine [Imuran] 50 mg PO DAILY 11/03/16 [History] Omeprazole [PriLOSEC] 40 mg PO DAILY 11/04/16 [History] PARoxetine HCl [Paroxetine HCl] 20 mg PO HS 03/16/17 [History] Potassium Chloride [Klor-Con 10] 10 meq PO DAILY 03/16/17 [History] Sennosides/Docusate Sodium [Senna Plus] 1 tab PO DAILY 03/16/17 [History] Acetaminophen [Tylenol] 650 mg PO Q6H PRN 03/21/17 [History] Losartan/Hydrochlorothiazide [Losartan-Hctz 100-12.5 mg Tab] 1 each PO DAILY 11/26 [History] Calcium Carbonate/Vitamin D3 [[place] Calcium-Vit D Tab] 1 tab PO TID 04/07 [History] Polyethylene Glycol 3350 [MiraLAX] 17 gm PO DAILY PRN 04/07/17 [History] Triamcinolone Acet 0.1% CRM [Kenalog] 1 appl TP BID 04/07/17 [History] predniSONE [PredniSONE] 10 mg PO DAILY 04/07/17 [History] HYDROcodone/Acet 5/325 mg [[place] 5-325 mg] 1 tab PO Q6HR PRN 6 Days #24 tablet 04/08/17 [Rx] Allergies/Adverse Reactions: 3 Allergy/AdvReac Type Severity Reaction Status Date / Time No Known Allergies Allergy Verified 04/07/17 08:05 Date of admission: 04/07/17 14:10 Primary care physician: Nina Smith CNP Procedure(s) Performed: Right femoral to left femoral artery bypass and femoral endarterectomy. Discharging clinician: Jonah Almanza Anticipated date of discharge: 04/08/17 Exam Vital Signs, Last 4 Hours Temp Pulse Resp BP Pulse Ox 04/08/17 04:00 98.2 F 61 18 151/76 94 General: Present: Conversant, No Apparent Distress Cardiac: Present: Reg Rate and Rhythm Lungs: Present: Normal Breath Sounds Neuro: Present: Alert and responsive Abdomen: Present: Soft, Non-tender Vascular: Present: Surgical incisions (clean and dry, no hematoma). Absent: Cyanosis, Edema Skin: Present: Wound/ulcer(s) (stable, no erythema or drainage) - Patient Status Disposition: Transfer LTC Condition: Good Overall status at discharge: patient is back to baseline - Discharge Instructions Follow Up With: Jonah Almanza MD [Partnered Physician] - 05/12/17 2:30 pm Nina Smith CNP [Primary Care Provider] - (SENT WEB REQUEST ON 04-07-17 @ [id number]) Additional Instructions: MAY REMOVE BANDAGES AND SHOWER ON 04/09/17. NO TUB BATHS OR SWIMMING UNTIL 05/03/17. WASH WOUNDS GENTLY AND PAT TO DRY. APPLY DRY GAUZE TO GROIN WOUNDS DAILY FOR [address] ALMANZA AT [phone] WITH QUESTIONS OR CONCERNS. - Diet and Activity Activity: increase activity as tolerated Diet: advance to your usual diet - VTE Documentation of Mechanical Device: Intermittent pneumatic compression device
[2017-04-08] MEDS: VITAMIN D3 PO SCH ×2 (07:55→08:17)
[2017-04-08] MEDS: CALCIUM CARBONATE PO SCH ×2 (07:55→08:17)
[2017-04-08 08:09] VITALS: BP 152/73
[2017-04-08] MEDS ORDERED: Sennosides/Docusate Sodium TABLET PO SCH (09:00)
[2017-04-08] MEDS ORDERED: Metoprolol 100 MG TABLET PO SCH (09:00)
[2017-04-08] MEDS ORDERED: hydroCHLOROthiazide 25 MG TABLET PO SCH (09:00)
[2017-04-08] MEDS ORDERED: predniSONE 10 MG TABLET PO SCH (09:00)
[2017-04-08] MEDS ORDERED: Aspirin Enteric Coated 81 MG Tablet PO SCH (09:00)
--- NOTE | 2017-04-08 10:11 | Physician Discharge Referral ---
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 Priority: Primary Status: Chronic (2) Essential hypertension Priority: Secondary Status: Chronic (3) Paroxysmal A-fib Priority: Secondary Status: Chronic Prognosis: Fair Aware of Diagnosis: Patient Aware of Prognosis: Patient - Transfer Medications Prescriptions: HYDROcodone/Acet 5/325 mg [[place] 5-325 mg] 1 tab PO Q6HR PRN 6 Days #24 tablet PRN Reason: POSTOPERATIVE PAIN Home Medications: Aspirin [Adult Low Dose Aspirin EC] 81 mg PO DAILY 03/31/15 [History] Metoprolol [Lopressor] 100 mg PO BID 03/31/15 [History] Tamsulosin [Flomax] 0.8 mg PO HS 03/31/15 [History] Apixaban [Eliquis] 5 mg PO BID 11/03/16 [History] Azathioprine [Imuran] 50 mg PO DAILY 11/03/16 [History] Omeprazole [PriLOSEC] 40 mg PO DAILY 11/04/16 [History] PARoxetine HCl [Paroxetine HCl] 20 mg PO HS 03/16/17 [History] Potassium Chloride [Klor-Con 10] 10 meq PO DAILY 03/16/17 [History] Sennosides/Docusate Sodium [Senna Plus] 1 tab PO DAILY 03/16/17 [History] Acetaminophen [Tylenol] 650 mg PO Q6H PRN 03/21/17 [History] Losartan/Hydrochlorothiazide [Losartan-Hctz 100-12.5 mg Tab] 1 each PO DAILY 11/26 [History] Calcium Carbonate/Vitamin D3 [[place]yster [place] Calcium-Vit D Tab] 1 tab PO TID 04/07 [History] Polyethylene Glycol 3350 [MiraLAX] 17 gm PO DAILY PRN 04/07/17 [History] Triamcinolone Acet 0.1% CRM [Kenalog] 1 appl TP BID 04/07/17 [History] predniSONE [PredniSONE] 10 mg PO DAILY 04/07/17 [History] HYDROcodone/Acet 5/325 mg [[place] 5-325 mg] 1 tab PO Q6HR PRN 6 Days #24 tablet 04/08/17 [Rx] Allergies/Adverse Reactions: 3 Allergy/AdvReac Type Severity Reaction Status Date / Time No Known Allergies Allergy Verified 04/07/17 08:05 - Respiratory Orders Smoking Cessation: Smoking cessation has been advised. For more information, call the [place] Tobacco Quit Line at 4-623-QVTJ-NOW. - Ancillary Orders May use pressure relief devices daily prn, May go on DEREJE w/family/respon republican w /meds at nurse discretion PRN, May have alcoholic beverages - Advance Directives Living Will: No Power of [place]: No Code Status: Full Code - Mobility Orders Other ( TOLERATED) - Rehabiliation Orders Rehab Potential: Fair Rehab Orders: ROM Exercises, Evaluation for Physical Therapy, Evaluation for Occupational Therapy - Treatments Skin tear care topically daily PRN per policy, May check for fecal impaction rectally daily PRN, Fleet enema rectally every other day PRN cleansing purposes - Diet Orders Regular CERTIFICATION: I certify that the transfer of the above named patient to an Extended Care Facility is necessary for the continuing treatment of the diagnosis listed. The above information is true and accurate reflection of patient's current condition. Confidential - Redisclosure prohibited without a patient's written consent.
== END 2017-04-08 11:26 | DRG 254 ==
LOC: SAMDAY 07:14 → 2NNU 14:10
PROVIDERS: ADMIT Surgery; ATTEND Surgery
PROC: VASFFBG (ICD-10-PCS; 2017-04-07 08:15)

== ENCOUNTER 2020-09-15 00:28 | Inpatient (IN) ==
[2020-09-15] MEDS ORDERED: 0.9 % Sodium Chloride 1,000 ML IVC ONE (00:49)
[2020-09-15] MEDS ORDERED: Piperacillin/Tazobactam 3.375 GM in Water for inj. (sterile) 20 ML IVP ONE (00:49)
[2020-09-15] MEDS ORDERED: Vancomycin 1,250 MG/262.5 ML IV.SOLN IVPB ONE (01:00)
[2020-09-15 01:29] LABS: VBG HCO3 25 mEq/L (21-27); VBG PCO2 49 mmHg (41-51); VBG PH 7.31 pH Units (7.32-7.42); VBG PO2 32 mmHg (25-50)
[2020-09-15 01:30] LABS: Basophils # 0.1 K/mcL (0.0-0.2); Basophils % 0.7 %; Eosinophils # 0.4 K/mcL (0.0-0.6); Eosinophils % 3.8 %; Hemoglobin 15.8 g/dL (12.9-16.9); Lymphocytes # 0.8 K/mcL (0.6-4.6); Lymphocytes % 7.4 %; Mean Corpuscular Hemoglobin 21.3 pg (28.0-33.3); Mean Corpuscular Volume 68.7 fL (83.0-100.0); Mean Platelet Volume 9.2 fL (9.4-12.4); Monocytes # 0.6 K/mcL (0.0-1.3); Monocytes % 5.6 %; Platelet Count 684 K/mcL (140-400); Red Blood Count 7.42 M/mcL (4.19-5.50); Red Cell Distribution Width 19.1 % (11.5-14.5); Segmented Neutrophils % 81.5 %; White Blood Count 10.1 K/mcL (4.3-11.1)
[2020-09-15 01:31] LABS: Neutrophils # 8.2 K/mcL (1.6-8.9)
[2020-09-15 01:32] LABS: Bilirubin,Urine Negative (Negative); Blood,Urine Negative (Negative); Clarity,Urine Clear (Clear); Color,Urine Yellow (Yellow); Glucose,Urine (UA) Normal (Normal); Ketones,Urine Negative (Negative); Leukocyte Esterase,Urine Negative (Negative); Mucus,Urine Few per lpf (None-Few); Nitrite,Urine Negative (Negative); PH,Urine 5.5 pH Units (5.0-8.0); Protein,Urine 100 mg/dL (Neg-Trace); RBC,Urine 0-3 per hpf (0-3); Specific Gravity,Urine > 1.030 (1.010-1.025); Urobilinogen,Urine Normal (Normal); WBC,Urine 0-3 per hpf (0-3)
[2020-09-15 01:38] LABS: INR 1.2; Prothrombin Time 14.3 Seconds (9.4-12.1)
[2020-09-15 01:41] LABS: Activated Partial Thrombo Time 25.4 Seconds (26.0-36.0)
[2020-09-15 01:44] LABS: Anisocytosis 1+ (Not Present); Microcytosis Present (Not Present); Platelet Estimate Increased (Normal)
[2020-09-15 01:54] LABS: Alanine Aminotransferase 10 Units/L (7-52); Albumin 4.4 g/dL (3.5-5.7); Albumin/Globulin Ratio 1.9 (1.1-2.2); Alkaline Phosphatase 73 Units/L (34-104); Aspartate Amino Transferase 13 Units/L (13-39); BUN/Creatinine Ratio 21 (6-26); Bilirubin,Direct 0.2 mg/dL (0.0-0.2); Bilirubin,Indirect 0.5 mg/dL (0.0-1.0); Bilirubin,Total 0.7 mg/dL (0.3-1.0); Blood Urea Nitrogen 30 mg/dL (8-23); Carbon Dioxide 23 mEq/L (23-29); Chloride 99 mEq/L (98-107); Globulin 2.3 g/dL (2.4-3.5); Glucose 150 mg/dL (70-105); Lipase 52 Units/L (11-82); Magnesium 1.6 mg/dL (1.6-2.6); Osmolality,Calculated 281 (280-300); Potassium 3.3 mEq/L (3.5-5.1); Sodium 131 mEq/L (136-145); Total Protein 6.7 g/dL (6.4-8.9); Troponin I < 0.03 ng/mL (< 0.04); eGFR For African Americans 60 (> 60); eGFR For Non-African Americans 49 (> 60)
[2020-09-15] MEDS ORDERED: 0.9 % Sodium Chloride 500 ML IVC ONE (03:45)
[2020-09-15] MEDS ORDERED: Naloxone 0.4 MG/ML INJ IVP PRN (04:12)
[2020-09-15] MEDS ORDERED: Acetaminophen 325 MG TABLET PO PRN (04:12)
[2020-09-15] MEDS ORDERED: Ondansetron 4 MG/2 ML VIAL IVP PRN (04:12)
[2020-09-15 05:04] LABS: Adenovirus Not Detected (Not Detect); Bordetella Pertussis Not Detected (Not Detect); Chlamydophila pneumoniae Not Detected (Not Detect); Coronavirus 229E Not Detected (Not Detect); Coronavirus HKU1 Not Detected (Not Detect); Coronavirus NL63 Not Detected (Not Detect); Coronavirus OC43 Not Detected (Not Detect); Human Metapneumovirus Not Detected (Not Detect); Human Rhinovirus/Enterovirus Not Detected (Not Detect); Influenza A Subtype 2009 H1 Not Detected (Not Detect); Influenza B Not Detected (Not Detect); Mycoplasma pneumoniae Not Detected (Not Detect); Parainfluenza Virus 1 Not Detected (Not Detect); Parainfluenza Virus 2 Not Detected (Not Detect); Parainfluenza Virus 3 Not Detected (Not Detect); Parainfluenza Virus 4 Not Detected (Not Detect); Respiratory Syncytial Virus Not Detected (Not Detect); SARS-CoV-2 Not Detected (Not Detect)
[2020-09-15] MEDS: Piperacillin/Tazobactam 3.375 GM in 0.9 % Sodium Chloride Mini Bag 100 ML IVPB SCH ×2 (09:32→17:28)
[2020-09-15] MEDS: 0.9 % Sodium Chloride 1,000 ML IVC SCH ×2 (09:33→20:49)
[2020-09-15 10:22] LABS: Calcium 8.2 mg/dL (8.6-10.3); Potassium 3.8 mEq/L (3.5-5.1)
[2020-09-15 10:29] LABS: Iron < 10 mcg/dL (65-175); Transferrin 250 mg/dL (203-362)
[2020-09-15] MEDS: Levalbuterol Neb 0.63 MG/3 ML IH SCH ×3 (10:55→21:26)
[2020-09-15] MEDS ORDERED: Apixaban 5 MG TABLET PO SCH (11:15)
[2020-09-15] MEDS: amLODIPine 5 MG TABLET PO SCH (17:28)
[2020-09-15] MEDS ORDERED: Piperacillin/Tazobactam 3.375 GM in 0.9 % Sodium Chloride Mini Bag 100 ML IVPB SCH (18:00)
[2020-09-15] MEDS: *HR* Heparin 5,000 UNIT/ML VIAL SQ SCH (20:49)
[2020-09-16] MEDS: Piperacillin/Tazobactam 3.375 GM in 0.9 % Sodium Chloride Mini Bag 100 ML IVPB SCH ×3 (02:26→16:52)
[2020-09-16] MEDS: Levalbuterol Neb 0.63 MG/3 ML IH SCH ×4 (04:19→22:40)
[2020-09-16] MEDS: *HR* Heparin 5,000 UNIT/ML VIAL SQ SCH (05:11)
[2020-09-16 08:43] LABS: Basophils # 0.1 K/mcL (0.0-0.2); Basophils % 0.5 %; Eosinophils # 0.4 K/mcL (0.0-0.6); Eosinophils % 3.8 %; Immature Granulocytes % 0.9 % (0-4); Lymphocytes # 0.7 K/mcL (0.6-4.6); Mean Corpuscular HGB Conc 31.9 g/dL (31.6-35.5); Mean Corpuscular Hemoglobin 21.8 pg (28.0-33.3); Mean Corpuscular Volume 68.4 fL (83.0-100.0); Mean Platelet Volume 9.4 fL (9.4-12.4); Monocytes # 0.7 K/mcL (0.0-1.3); Monocytes % 7.1 %; Platelet Count 495 K/mcL (140-400); Red Blood Count 5.41 M/mcL (4.19-5.50); Red Cell Distribution Width 17.1 % (11.5-14.5); Segmented Neutrophils % 80.7 %; White Blood Count 10.1 K/mcL (4.3-11.1)
[2020-09-16 08:51] LABS: Hemoglobin 11.8 g/dL (12.9-16.9); Neutrophils # 8.2 K/mcL (1.6-8.9)
[2020-09-16 09:38] LABS: Alanine Aminotransferase 8 Units/L (7-52); Albumin 3.3 g/dL (3.5-5.7); Albumin/Globulin Ratio 1.8 (1.1-2.2); Alkaline Phosphatase 51 Units/L (34-104); Aspartate Amino Transferase 11 Units/L (13-39); BUN/Creatinine Ratio 17 (6-26); Bilirubin,Total 0.8 mg/dL (0.3-1.0); Blood Urea Nitrogen 20 mg/dL (8-23); Calcium 8.1 mg/dL (8.6-10.3); Carbon Dioxide 22 mEq/L (23-29); Chloride 106 mEq/L (98-107); Globulin 1.8 g/dL (2.4-3.5); Glucose 89 mg/dL (70-105); Osmolality,Calculated 280 (280-300); Potassium 3.4 mEq/L (3.5-5.1); Sodium 134 mEq/L (136-145); Total Protein 5.1 g/dL (6.4-8.9); eGFR For African Americans > 60 (> 60); eGFR For Non-African Americans > 60 (> 60)
[2020-09-16] MEDS: Sennosides/Docusate Sodium TABLET PO SCH (09:55)
[2020-09-16] MEDS: Aspirin Enteric Coated 81 MG Tablet PO SCH (09:55)
[2020-09-16] MEDS: FLUoxetine 20 MG CAPSULE PO SCH (09:55)
[2020-09-16] MEDS: predniSONE 10 MG TABLET PO SCH (09:56)
[2020-09-16] MEDS: amLODIPine 5 MG TABLET PO SCH (09:56)
[2020-09-16] MEDS: 0.9 % Sodium Chloride 1,000 ML IVC SCH ×2 (10:11→20:29)
[2020-09-16] MEDS ORDERED: Potassium Chloride Elixir 20 MEQ/15 ML UDC PO ONE (11:41)
[2020-09-16 12:01] LABS: Hematocrit 36.1 % (37.5-50.1); Hemoglobin 11.6 g/dL (12.9-16.9)
[2020-09-16] MEDS ORDERED: amLODIPine 5 MG TABLET PO ONE (17:00)
[2020-09-17] MEDS: Piperacillin/Tazobactam 3.375 GM in 0.9 % Sodium Chloride Mini Bag 100 ML IVPB SCH ×3 (02:54→17:11)
[2020-09-17] MEDS: Levalbuterol Neb 0.63 MG/3 ML IH SCH ×4 (03:57→22:46)
[2020-09-17 07:44] LABS: Basophils # 0.1 K/mcL (0.0-0.2); Basophils % 0.6 %; Eosinophils # 0.5 K/mcL (0.0-0.6); Hematocrit 36.7 % (37.5-50.1); Hemoglobin 11.5 g/dL (12.9-16.9); Immature Granulocytes % 0.9 % (0-4); Lymphocytes # 0.7 K/mcL (0.6-4.6); Lymphocytes % 7.3 %; Mean Corpuscular HGB Conc 31.3 g/dL (31.6-35.5); Mean Corpuscular Hemoglobin 21.5 pg (28.0-33.3); Mean Corpuscular Volume 68.7 fL (83.0-100.0); Mean Platelet Volume 9.6 fL (9.4-12.4); Monocytes # 0.7 K/mcL (0.0-1.3); Monocytes % 6.8 %; Neutrophils # 7.9 K/mcL (1.6-8.9); Platelet Count 481 K/mcL (140-400); Red Blood Count 5.34 M/mcL (4.19-5.50); Red Cell Distribution Width 17.5 % (11.5-14.5); Segmented Neutrophils % 79.4 %
[2020-09-17 08:06] LABS: Alanine Aminotransferase 6 Units/L (7-52); Albumin 3.3 g/dL (3.5-5.7); Albumin/Globulin Ratio 1.8 (1.1-2.2); Alkaline Phosphatase 48 Units/L (34-104); Aspartate Amino Transferase 11 Units/L (13-39); BUN/Creatinine Ratio 12 (6-26); Bilirubin,Total 0.8 mg/dL (0.3-1.0); Blood Urea Nitrogen 12 mg/dL (8-23); Calcium 8.2 mg/dL (8.6-10.3); Carbon Dioxide 20 mEq/L (23-29); Chloride 106 mEq/L (98-107); Globulin 1.8 g/dL (2.4-3.5); Glucose 81 mg/dL (70-105); Osmolality,Calculated 273 (280-300); Potassium 3.6 mEq/L (3.5-5.1); Sodium 132 mEq/L (136-145); Total Protein 5.1 g/dL (6.4-8.9); eGFR For African Americans > 60 (> 60); eGFR For Non-African Americans > 60 (> 60)
[2020-09-17] MEDS: Aspirin Enteric Coated 81 MG Tablet PO SCH (08:06)
[2020-09-17] MEDS: amLODIPine 5 MG TABLET PO SCH (08:06)
[2020-09-17] MEDS: predniSONE 10 MG TABLET PO SCH (08:06)
[2020-09-17] MEDS: FLUoxetine 20 MG CAPSULE PO SCH (08:06)
[2020-09-17] MEDS: Sennosides/Docusate Sodium TABLET PO SCH (08:06)
[2020-09-17 09:27] LABS: Anisocytosis 1+ (Not Present); Microcytosis Present (Not Present); Platelet Estimate Normal (Normal)
[2020-09-17] MEDS ORDERED: predniSONE 10 MG TABLET PO SCH (09:30)
[2020-09-17] MEDS: 0.9 % Sodium Chloride 1,000 ML IVC SCH ×2 (17:08→18:12)
[2020-09-18] MEDS: Piperacillin/Tazobactam 3.375 GM in 0.9 % Sodium Chloride Mini Bag 100 ML IVPB SCH ×3 (01:12→16:59)
[2020-09-18] MEDS: Levalbuterol Neb 0.63 MG/3 ML IH SCH ×4 (04:16→22:04)
[2020-09-18 06:27] LABS: Basophils % 0.3 %; Eosinophils # 0.1 K/mcL (0.0-0.6); Eosinophils % 0.9 %; Hematocrit 36.6 % (37.5-50.1); Hemoglobin 11.8 g/dL (12.9-16.9); Immature Granulocytes % 1.2 % (0-4); Lymphocytes # 0.7 K/mcL (0.6-4.6); Lymphocytes % 6.1 %; Mean Corpuscular HGB Conc 32.2 g/dL (31.6-35.5); Mean Corpuscular Hemoglobin 21.6 pg (28.0-33.3); Mean Platelet Volume 9.4 fL (9.4-12.4); Monocytes # 0.7 K/mcL (0.0-1.3); Monocytes % 6.1 %; Platelet Count 630 K/mcL (140-400); Red Blood Count 5.46 M/mcL (4.19-5.50); Red Cell Distribution Width 17.2 % (11.5-14.5); Segmented Neutrophils % 85.4 %; White Blood Count 11.7 K/mcL (4.3-11.1)
[2020-09-18 06:51] LABS: Alanine Aminotransferase 7 Units/L (7-52); Albumin 3.4 g/dL (3.5-5.7); Albumin/Globulin Ratio 1.7 (1.1-2.2); Alkaline Phosphatase 51 Units/L (34-104); Aspartate Amino Transferase 10 Units/L (13-39); BUN/Creatinine Ratio 10 (6-26); Bilirubin,Total 0.6 mg/dL (0.3-1.0); Blood Urea Nitrogen 11 mg/dL (8-23); Calcium 8.5 mg/dL (8.6-10.3); Carbon Dioxide 20 mEq/L (23-29); Chloride 105 mEq/L (98-107); Glucose 118 mg/dL (70-105); Osmolality,Calculated 278 (280-300); Potassium 3.5 mEq/L (3.5-5.1); Sodium 134 mEq/L (136-145); Total Protein 5.4 g/dL (6.4-8.9); eGFR For African Americans > 60 (> 60); eGFR For Non-African Americans > 60 (> 60)
[2020-09-18 07:08] LABS: Anisocytosis 1+ (Not Present); Microcytosis Present (Not Present); Platelet Estimate Marked Increase (Normal)
[2020-09-18] MEDS: FLUoxetine 20 MG CAPSULE PO SCH (08:25)
[2020-09-18] MEDS: Aspirin Enteric Coated 81 MG Tablet PO SCH (08:25)
[2020-09-18] MEDS: Sennosides/Docusate Sodium TABLET PO SCH (08:26)
[2020-09-18] MEDS: predniSONE 10 MG TABLET PO SCH (08:26)
[2020-09-18] MEDS: amLODIPine 5 MG TABLET PO SCH (08:26)
[2020-09-18] MEDS ORDERED: Ipratropium Neb 0.5 MG NEBULIZER IH PRN (11:16)
[2020-09-19] MEDS: Piperacillin/Tazobactam 3.375 GM in 0.9 % Sodium Chloride Mini Bag 100 ML IVPB SCH ×3 (01:16→17:56)
[2020-09-19] MEDS: Levalbuterol Neb 0.63 MG/3 ML IH SCH ×3 (04:19→15:36)
[2020-09-19 05:43] LABS: Basophils # 0.1 K/mcL (0.0-0.2); Basophils % 0.8 %; Eosinophils # 0.7 K/mcL (0.0-0.6); Eosinophils % 5.6 %; Hematocrit 39.7 % (37.5-50.1); Immature Granulocytes % 1.4 % (0-4); Lymphocytes # 1.3 K/mcL (0.6-4.6); Lymphocytes % 11.3 %; Mean Corpuscular HGB Conc 32.7 g/dL (31.6-35.5); Mean Corpuscular Volume 67.1 fL (83.0-100.0); Mean Platelet Volume 9.3 fL (9.4-12.4); Monocytes % 8.1 %; Neutrophils # 8.6 K/mcL (1.6-8.9); Platelet Count 708 K/mcL (140-400); Red Blood Count 5.92 M/mcL (4.19-5.50); Segmented Neutrophils % 72.8 %; White Blood Count 11.8 K/mcL (4.3-11.1)
[2020-09-19 05:58] LABS: Alanine Aminotransferase 8 Units/L (7-52); Albumin 3.7 g/dL (3.5-5.7); Albumin/Globulin Ratio 1.7 (1.1-2.2); Alkaline Phosphatase 51 Units/L (34-104); Aspartate Amino Transferase 11 Units/L (13-39); BUN/Creatinine Ratio 10 (6-26); Bilirubin,Total 0.6 mg/dL (0.3-1.0); Blood Urea Nitrogen 10 mg/dL (8-23); Calcium 8.6 mg/dL (8.6-10.3); Carbon Dioxide 22 mEq/L (23-29); Chloride 104 mEq/L (98-107); Globulin 2.2 g/dL (2.4-3.5); Glucose 90 mg/dL (70-105); Osmolality,Calculated 279 (280-300); Potassium 3.4 mEq/L (3.5-5.1); Sodium 135 mEq/L (136-145); Total Protein 5.9 g/dL (6.4-8.9); eGFR For African Americans > 60 (> 60); eGFR For Non-African Americans > 60 (> 60)
[2020-09-19 06:17] LABS: Anisocytosis 1+ (Not Present); Microcytosis Present (Not Present); Platelet Estimate Increased (Normal); Poikilocytosis 1+ (Not Present)
[2020-09-19] MEDS: predniSONE 10 MG TABLET PO SCH (09:10)
[2020-09-19] MEDS: Aspirin Enteric Coated 81 MG Tablet PO SCH (09:10)
[2020-09-19] MEDS: amLODIPine 5 MG TABLET PO SCH (09:10)
[2020-09-19] MEDS: Sennosides/Docusate Sodium TABLET PO SCH (09:11)
[2020-09-19] MEDS: FLUoxetine 20 MG CAPSULE PO SCH (09:11)
[2020-09-19 18:23] VITALS: BP 159/58; PULSE 61; TEMP 98.4; O2SAT 95
== END 2020-09-19 20:06 | DRG 177 ==
LOC: 2ANU 00:28 → EMEROOARM 00:28 → SUATTDRO 05:18 → 2ANU 06:33
PROVIDERS: ADMIT Family Medicine; ATTEND Internal Medicine